=== PATIENT | male | born 1975 | race Caucasian/White ===

== ENCOUNTER 2019-12-04 08:23 | Outpatient (CLI) | payer OTHER, SELFPAY ==
--- NOTE | ~2019-12-04 | XR_ITS ---
MODIFIED ESOPHAGRAM HISTORY: Dysphagia. TECHNIQUE: Modified barium esophagram was performed on 12/04/2019. I administered fluoroscopy and perfo rmed the exam with speech pathologist. Patient was seated for lateral fluoroscopic imaging for inges tion of thin liquids, pudding, solids and quantified amounts, followed by thin liquids in uncontrolle d amounts. This was recorded on tape. A single fluoroscopic spot image was also recorded. The DAP for this procedure was 0.955 Gycm2. The amount of fluoroscopy time used during this procedure was 1.5 mi nutes. FINDINGS: Oral stage: Adequate function. Pharyngeal stage: Adequate function. Cervical/esophageal stage: Adequate function. The upper esophageal sphincter close to the prematurely on the tail of the bolus resulting in trace residual at the piriform sinus IMPRESSION: Patient tolerated regular consistency oral feedings in the upright position. Please raven elate with speech pathologist findings and specific feeding recommendations. Reviewed, dictated and finalized at location A. IMPRESSION: Patient tolerated regular consistency oral feedings in the upright position. Please correlate with speech pathologist findings and specific feedi ng recommendations.
--- NOTE | 2019-12-04 10:32 | STOPEVAL ---
MODIFIED BARIUM SWALLOW EVALUATION: Thank you for referring Mango Andujar to [facility]. Attending Provider: RHONDA Vickers Referring Provider: Dr Griselda OSEGUERA Outpatient Evaluation: MBS Start: 12/04/19 10:22 Freq: Status: Active Protocol: Document 12/04/19 09:00 BECHERERT (Rec: 12/04/19 10:32 BECHERERT [email or web address]) Therapy Assessment Status Assessment Status Assessment Status Evaluation Outpatient Past Medical History Past Medical History Source of Past Medical History Patient Neurological History Hx Neurological Disorders No Significant History Cardiovascular History Hx Cardiac Disorders No Significant History Respiratory History Hx Respiratory Disorders No Significant History Gastrointestinal History Hx Gastrointestinal Disorders No Significant History Genitourinary History Hx Genitourinary Disorders No Significant History Musculoskeletal History Hx Musculoskeletal Disorders No Significant History Hematological History Hx Hematological Disorders No Significant History Endocrine History Hx Endocrine Disorders No Significant History HEENT History Hx HEENT Disorders No Significant History Integumentary History Hx Skin Disorders No Significant History Pain History History of Any Previous or Ongoing No Significant History Instance of Pain Anesthesia History Hx Anesthesia Reactions No Significant History Evaluation Information Problem Diagnosis DYSPHAGIA Onset 5 months ago Prior Level of Function Prior Swallow Level Prior Intake Method Oral Prior Diet Regular (Level 7 Diet) Prior Liquid Consistency Thin (Level 0 Diet) Prior Cognition/Communication Prior Communication Level No Impairment Prior Cognitive Function Able to Function Independently Pain Assessment Timing of Pain Assessment Timing of Pain Assessment Assessment Self Report Self Report Pain Level 0 Pain Scale Pain Scale Used Numeric (1 - 10) Pain Score Pain Score 0: Self Report Modified Barium Swallow Evaluation Recent Swallowing History Reports Dysphagia Yes: solids get hung up Onset of Dysphagia 5 months ago History of Dysphagia No Other Factors Impacting Dysphagia None History of Pneumonia No Reported Difficult Consistencies Solids Intake Method Prior to Swallow Oral Evaluation Diet Prior to Swallow Evaluation Regular, Level 7 Liquid Consistency Prior to Swallow Thin (0) Evaluation Consistency Thin Uncontrolled 1 Other Amount cup & straw Oral Preparatory Symptoms None Oral Phase Symptoms None Pharyngeal Phase Symptoms Within Functional Limits Severity of Vallecular Residue Non
== END 2019-12-04 08:24 | disposition home or self-care (01) ==
PROVIDERS: PCP Family Medicine; Visit Provider Nurse Practitioner Family
DX: R13.10 Dysphagia, unspecified (principal)
CPT/HCPCS: 92611

== ENCOUNTER 2020-02-16 10:20 | Outpatient (CLI) | payer OTHER, SELFPAY ==
--- NOTE | ~2020-02-16 | US_ITS ---
EXAMINATION: US soft tissue head and neck DATE: 02/16/2020 10:44 INDICATION: Left neck lump. TECHNIQUE: Multiple grayscale and Doppler ultrasound images of the neck were obtained. COMPARISON: Ultrasound 03/11/2018 FINDINGS: There is a normal subcutaneous lymph node in the patient's area of concern in left neck. IMPRESSION: 1. Normal subcutaneous lymph node in the patient's area of concern in left neck. Reviewed, dictated and finalized at location A. IMPRESSION: 1. Normal subcutaneous lymph node in the patient's area of concern in left neck .
== END 2020-02-16 10:21 | disposition home or self-care (01) ==
PROVIDERS: PCP Family Medicine; Visit Provider Nurse Practitioner Family
DX: R22.1 Localized swelling, mass and lump, neck (principal)
CPT/HCPCS: 76536

== ENCOUNTER 2020-02-28 01:20 | Outpatient (CLI) | payer OTHER, SELFPAY ==
[2020-02-28 20:48] LABS: SARS-CoV-2 RNA PCR Negative
== END 2020-02-28 01:21 | disposition home or self-care (01) ==
LOC: ANHCOVIDDT 01:20
PROVIDERS: PCP Family Medicine; Visit Provider Otolaryngology
DX: Z01.812 Encounter for preprocedural laboratory examination (principal); Z20.828 Contact with and (suspected) exposure to other viral communicable diseases
CPT/HCPCS: 87635; C9803; U0003

== ENCOUNTER 2020-03-01 00:37 | Day surgery (SDC) | payer OTHER, SELFPAY ==
[2020-02-27 14:33] VITALS: BMI 26.2
--- NOTE | 2020-03-01 07:04 | PM.IMHP ---
H&P: HPI History of Present Illness Date/Time: 03/01/20 07:04 Chief complaint: left neck mass Narrative: Mango Andujar is a 44 year old male With history of recurrent left-sided neck mass the neck masses small has been ultrasound previously appears to be reactive lymph node. On my examination is approximately 5 x 5 mm. The patient having a significant family history of cancer wishes to have the lesion removed. The patient presents today for excision of the lesion. Review of Systems Constitutional: Constitutional: Denies fatigue, Denies fever(s) and Denies lethargy Eyes: Eyes: Denies blurry vision and Denies change in vision ENT: Reports as per HPI Cardiovascular: Cardiovascular: Denies chest pain Respiratory: Respiratory: Denies cough Endocrine: Endocrine: Denies fatigue Hematologic/Lymphatic: Hematologic/Lymphatic: Denies easy bleeding and Denies easy bruising Allergic/Immunologic: Allergic/Immunologic: Denies seasonal rhinorrhea PMFSH Social History Social History Smoking status: Never smoker Alcohol intake: current Drinks per week: 4 Spiritual care concerns: No Meds Home Medications and Allergies Home Medications Medication Instructions Recorded Confirmed Type escitalopram oxalate 20 mg tablet 20 mg PO DAILY #30 tablet 12/25/19 02/27/20 Rx atorvastatin 10 mg tablet 10 mg PO DAILY #90 tablet 01/19/20 02/27/20 Rx buspirone 10 mg tablet 10 mg PO BID #180 tablet 01/22/20 02/27/20 Rx lisinopril 5 mg tablet 5 mg PO DAILY #90 tablet 01/22/20 02/27/20 Rx zolpidem [Ambien] 10 mg PO HS 02/27/20 02/27/20 History Allergies Allergy/AdvReac Type Severity Reaction Status Date / Time No Known Allergies Allergy Verified 02/27/20 14:34 Exam Const: General: cooperative, healthy appearing, comfortable, well developed and alert HENMT: Head: normal to inspection, normocephalic and atraumatic Ears: hearing grossly normal bilaterally, external ears normal, TM's normal bilaterally and EAC's normal General nose exam: Normal external nose present, Normal nares present, No nasal polyps present, Normal nasal mucous membranes and turbinates present and Normal septum present Face and sinus: normal facial exam Mouth: Yes Normal oral and palatal mucosa present, Yes lip normal, Yes tongue normal, Yes oropharynx normal and Yes moist mucous membranes Teeth and gingiva: dentition normal and gingiva normal Throat: posterior oropharynx normal, tonsils normal and uvula midline Eyes: General: appearance normal, both eyes and all related structures Periorbital: periorbital findings normal Eyelids: eyelids normal Conjunctivae: conjunctivae normal Sclera: sclerae normal Neck: Neck: normal visual inspection, full ROM, no lymphadenopathy and other ( 5 x 5 mm left inferior subcutaneous mobile neck lesion) Thyroid: thyroid normal Lymphatic: no lymphadenopathy noted Resp: Effort & Inspection: normal respiratory effort and able to speak in complete sentences Cardio: Jugular venous distension: no JVD Neuro: Cranial nerves: Yes CN's II-XII intact bilaterally Assessment and Plan Assessment and plan (1) Mass of left side of neck: Code(s): R22.1 - Localized swelling, mass and lump, neck Status: Acute Assessment and Plan: the plan is for the OR to remove the left neck mass/lesion. The risks and benefits were explained in great detail with the patient including bleeding infection damage to surrounding neurovascular structures. The patient voiced understanding of these risks and agreed to the aforementioned procedures.
--- NOTE | 2020-03-01 08:00 | ECG_ITS ---
Measurements Intervals [place] Rate: 64 P: 40 NM: 151 QRS: 66 QRSD: 93 T: 28 QT: 418 QTc: 433 Interpretive Statements SINUS RHYTHM DELAYED PRECORDIAL R/S TRANSITION ST ELEVATION IN ANTEROLAT/HIGH LAT LEADS- PROBABLY EARLY REPOLARIZATION BORDERLINE ECG Electronically Signed On 03-01-2020 9:12:06 CDT by Jem Dave D.O.
--- NOTE | 2020-03-01 08:38 | WPDHPUPDATE1 ---
History and Physical Update Update Date/Time: 03/01/20 08:38 History and Physical has been reviewed, including an updated exam of the patient. There are NO changes in the patient's condition. Risks, benefits, and alternatives have been discussed and questions answered. Patient agrees to proceed with procedure.
[2020-03-01] MEDS: LACTATED RINGERS 1,000 ML 30 ML IV CONT ×2 (08:40→10:30)
[2020-03-01 09:20] VITALS: BP 114/77; PULSE 76; TEMP 36.2; O2SAT 100
--- NOTE | 2020-03-01 09:20 | WPDANESEPPF ---
Anes - Initial Pre Proc Eval Procedure: Operation Date: 03/01/20 10:00 Proposed Procedures p Excision Left Neck Mass - Naveed Mojica MD Date/Time: 03/01/20 09:20 Surgeon: Naveed Mojica MD Pre Op Diagnosis: left neck mass Patient Data Age: 44 Gender: M Height: 5 ft 9 in Weight: 80.74 kg Allergies Allergy/AdvReac Type Severity Reaction Status Date / Time No Known Allergies Allergy Verified 02/27/20 14:34 Home Medications Medication Instructions Recorded Confirmed Type escitalopram oxalate 20 mg tablet 20 mg PO DAILY #30 tablet 12/25/19 02/27/20 Rx atorvastatin 10 mg tablet 10 mg PO DAILY #90 tablet 01/19/20 02/27/20 Rx buspirone 10 mg tablet 10 mg PO BID #180 tablet 01/22/20 02/27/20 Rx lisinopril 5 mg tablet 5 mg PO DAILY #90 tablet 01/22/20 02/27/20 Rx zolpidem [Ambien] 10 mg PO HS 02/27/20 02/27/20 History Patient hx anesthesia problems: none Family hx anesthesia problems: none PMFSH Family History Family History Father Family history of pancreatic cancer Social History Social History Smoking status: Never smoker Alcohol intake: current Drinks per week: 4 Spiritual care concerns: No Anes - Eval Final PreProcedure Day of Procedure 03/01/20 09:20 Patient weight: overweight Heart: regular rate and rhythm Lungs: clear to auscultation Airway: Mallampati scale class II Neurological: alert and oriented Last oral intake: >/= 8 hours ASA classification: II Emergent: no Anesthetic plan: proceed Anesthesia type and monitoring: general GIVS and standard monitoring Informed Consent: The patient's anesthetic plan and its attendant risks and benefits were discussed with the patient/family/POA. Questions were solicited and answers provided to the satisfaction of the patient/family/POA.
[2020-03-01] MEDS: ceFAZolin 2 GM/D5W 50 ML 2 GM/50 ML BAG IVPB (09:40)
--- NOTE | 2020-03-01 09:40 | WPDHPUPDATE1 ---
History and Physical Update Update Date/Time: 03/01/20 09:40 History and Physical has been reviewed, including an updated exam of the patient. There are NO changes in the patient's condition. Risks, benefits, and alternatives have been discussed and questions answered. Patient agrees to proceed with procedure.
[2020-03-01] MEDS: LIDO 1%/EPINEPHRINE 1:100,000 20 ML VIAL INFILTRATE (09:46)
[2020-03-01 10:30] VITALS: BP 111/68; PULSE 106; RESP 18; TEMP 36.1; O2SAT 100
--- NOTE | 2020-03-01 10:35 | PM.PROC ---
Procedure Note - Detailed Date of procedure: 03/01/20 Pre-op diagnosis: left neck mass Post-op diagnosis: same Procedure performed: 1. Excision of left neck mass 2. Complex closure of left neck incision 3 cm Description of procedure: the patient was correctly identified and consent was verified in the preoperative holding area. The patient was then brought to the operating room and a time-out was performed. General anesthesia was induced and endotracheal tube was secured the patient's airway and taped to the right lower lip. The head was then turned and the patient was prepped and draped for the aforementioned procedures. A 3 cm skin incision was made over the area of concern on the patient's left neck which was marked preoperatively. Dissection was carried down to the platysma as a small firm collection of lymph nodes was located. These lymph nodes were removed and sent for pathologic analysis. Hemostasis was achieved using bipolar electrocautery at a setting of 10 and the wound was copiously irrigated with sterile normal saline. The wound was then closed in its deepest layer with 4-0 interrupted Vicryl sutures. Four 0 Monocryl was run in the deep dermal layer. The skin was glued closed it was very well approximated. 5 cc of 1% lidocaine with 1 100,000 parts epinephrine was injected in the surgical bed and skin. I was present for and performed all portions of this procedure, care of the patient was turned over to Anesthesiology. Anesthesia: GLMA Surgeon: Naveed Mojica MD Estimated blood loss (mL): 5 Drains: No Packing: No Pathology: yes Complications: No immediate complications Condition: stable Disposition: PACU Findings: Small 5 x 5 mm lymph nodes approximately 2-3 relocated in the area of concern and removed.
[2020-03-01 10:45] VITALS: BP 112/78; PULSE 94; RESP 20; O2SAT 100
[2020-03-01 10:55] VITALS: BP 112/82; PULSE 90; RESP 20; O2SAT 98
[2020-03-01 11:10] VITALS: BP 125/88; PULSE 84
[2020-03-01 11:40] VITALS: BP 133/86; PULSE 87
--- NOTE | 2020-03-01 16:17 | SUR.PHASEII ---
11:45- Patient unhooked from monitors and waiting for ride.
== END 2020-03-01 12:01 | disposition home or self-care (01) ==
PROVIDERS: PCP Family Medicine; Visit Provider Otolaryngology
DX: R22.1 Localized swelling, mass and lump, neck (principal); L90.5 Scar conditions and fibrosis of skin; I10 Essential (primary) hypertension; E78.5 Hyperlipidemia, unspecified; F41.9 Anxiety disorder, unspecified; Z80.9 Family history of malignant neoplasm, unspecified; Z79.899 Other long term (current) drug therapy
CPT/HCPCS: 21552; 87635; 88305; 93005; C9803; J0330; J0690; J1100; J2250; J2370; J2405; J2704; J3010; J7120; U0003

== ENCOUNTER 2020-07-05 07:53 | Outpatient (CLI) | payer OTHER, SELFPAY ==
--- NOTE | ~2020-07-05 | US_ITS ---
US scrotum doppler INDICATION: Epididymal orchitis. Pain after vasectomy. TECHNIQUE: Testicular sonogram utilizing grayscale and color Doppler FINDINGS: The testes are normal in size and appearance. No focal lesions are seen. The right testes measures 4.4 x 2.3 x 3.4 cm centimeters, and the left testis measures 4.1 x 2.3 x 3 cm cm. There is n ormal vascular flow to both testes. The right and left epididymides appear normal. Small right hydrocele. Bilateral varicoceles. IMPRESSION: 1. Small right hydrocele. 2: Bilateral varicoceles. Reviewed, dictated and finalized at location A. MIXER HELPER
== END 2020-07-05 07:54 | disposition home or self-care (01) ==
LOC: ANHIMG 07:54
PROVIDERS: PCP Family Medicine; Visit Provider Nurse Practitioner Adult Health
DX: N45.3 Epididymo-orchitis (principal); I86.1 Scrotal varices; N43.3 Hydrocele, unspecified
CPT/HCPCS: 76870; 93976

== ENCOUNTER 2020-08-09 12:04 | Emergency (ER) | payer OTHER, SELFPAY ==
--- NOTE | ~2020-08-09 | XR_ITS ---
EXAMINATION: XR elbow RT min 3V DATE: 08/09/2020 12:24 INDICATION: Right elbow pain TECHNIQUE: Anteroposterior, two oblique and lateral views of the right elbow were obtained. COMPARISON: None. FINDINGS: Alignment is normal. No fracture or joint effusion. Joint spaces are normal. There is poste rior soft tissue swelling of the elbow. IMPRESSION: 1. No acute osseous abnormality. Reviewed, dictated and finalized at location A. SHIFTER
[2020-08-09 12:16] VITALS: BP 141/84; PULSE 94; RESP 18; TEMP 36.6; O2SAT 99
--- NOTE | 2020-08-09 12:27 | ED.GENADULT ---
HPI - General Adult General Chief complaint: Extremity Injury, Upper Stated complaint: right elbow injury Time Seen by Provider: 08/09/20 12:25 Source: patient and RN notes reviewed Mode of arrival: ambulatory Limitations: no limitations History of Present Illness HPI narrative: 44-year-old male presents with complains of RT elbow tenderness and swelling for the past 3 days. Mango reports falling backwards on ice Thursday, August 06, 2020 hitting right elbow on ground causing injury. He continues to have tenderness and swelling to right elbow. Ice, mag wrap, and Ibuprofen (400mg last this a.m.) with some relief. Abrasion to RT elbow. No radiation of pain. Exacerbation factor consist of movement. The relieving factor is immobility and medication. Dominant hand is the RIGHT HAND. Mango reports hitting head on truck, denies loss of consciousness, dizziness, syncopal episodes, memory loss, or seizure activity. Denies fever or chills. The patient reports she have not been diagnosed with COVID-19. The patient reports she is not waiting for the results of a COVID-19 lab test. The patient reports she do not have chills, weakness, or fatigue. The patient reports she do not have a new or worsening cough or shortness of breath. Denies chest pain. The patient reports she do not have any rhinorrhea, congestion, sore throat, loss of taste or smell, nausea, vomiting, abdominal pain, and diarrhea. Tolerating po intake well. Denies recent traveling. Denies concerns for COVID-19 or exposures been home with limited outdoor exposure except for essential household needs, work, and return home. At this time, patient is not suspected of having COVID-19. Some parts of this dictation were generated by voice recognition software and may contain typographical and/or grammatical inaccuracies. Related Data Allergies Allergy/AdvReac Type Severity Reaction Status Date / Time No Known Allergies Allergy Verified 02/27/20 14:34 Review of Systems Review of Systems: Narrative: CONSTITUTIONAL: Denies fever, chills, sweats. EYES: Denies visual changes, redness, discharge. ENT: Denies rhinorrhea, congestion, sore throat, otalgia. CARDIOVASCULAR: Denies chest pain, palpitations, edema. RESPIRATORY: Denies dyspnea, wheezing, cough. GASTROINTESTINAL: Denies abdominal pain, nausea, vomiting, diarrhea. SKIN: Denies rash or itching. MUSCULOSKELETAL: Denies acute back pain or myalgia. Complains of RT elbow pain and swelling. NEUROLOGIC: Denies numbness or focal weakness. PSYCHIATRIC: Denies anxiety or depression. All other systems reviewed & are unremarkable except as noted in HPI and below. [facility] Past Medical History Medical History (Updated 08/09/20 @ 13:06 by RHONDA Jon) Anxiety Dysphagia Essential hypertension Insomnia Liver disease Mass of left side of neck Mixed hyperlipidemia Seasonal allergic rhinitis Stress Tremors of nervous system Surgical History Surgical History (Updated 08/09/20 @ 13:06 by RHONDA Jon) History of knee surgery Left due to meniscus tear History of shoulder surgery Left x2 due to rotator cuff Family History Family History (Updated 08/09/20 @ 13:07 by RHONDA Jon) Father Family history of pancreatic cancer Smoker in home Mother Hypertension Social History Social History (Updated 08/09/20 @ 13:08 by RHONDA Jon) Smoking status: Never smoker Tobacco type: cigarettes Second hand tobacco smoke exposure: No Alcohol intake: current Drinks per week: 4 Substance use: never Living arrangements: with family Occupation/Education: occupation 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
== END 2020-08-09 13:00 | disposition home or self-care (01) ==
PROVIDERS: Emergency Provider Nurse Practitioner Family; PCP Family Medicine
DX: S50.01XA Contusion of right elbow, initial encounter (principal); W00.0XXA Fall on same level due to ice and snow, initial encounter; S50.311A Abrasion of right elbow, initial encounter; I10 Essential (primary) hypertension; E78.2 Mixed hyperlipidemia; F41.9 Anxiety disorder, unspecified
CPT/HCPCS: 73080; 99213; G0463

== ENCOUNTER 2020-12-12 08:24 | Outpatient (CLI) | payer OTHER, SELFPAY ==
--- NOTE | ~2020-12-12 | XR_ITS ---
XR abdomen/kub 1V 12/12/2020 08:41 INDICATION: Right flank pain for 5 days. TECHNIQUE: KUB COMPARISON: Comparison to multiple prior studies sequentially, with oldest reviewed study dated 11/23. FINDINGS: Bowel gas pattern is normal. There is no evidence of free air, mass, organomegaly, ascites or obstruction. No abnormal calculi are seen. The bones appear intact. There are cholecystectomy c lips. IMPRESSION: 1: No acute abdominal abnormality identified. Reviewed, dictated and finalized at location A.
--- NOTE | ~2020-12-12 | CT_ITS ---
EXAMINATION: CT abdomen pelvis wo con DATE: 12/12/2020 08:52 INDICATION: Right flank pain. History of kidney stones. TECHNIQUE: Computed tomography (CT) of the abdomen and pelvis was performed without intravenous contr ast. The dose-length product was 433.98 mGy-cm. Automated exposure control and iterative reconstructi on technique were employed. COMPARISON: CT dated 07/19/2017. FINDINGS: Lung bases are unremarkable. Heart size normal. No significant pleural or pericardial effus ion. There is a 2 mm nonobstructing right renal stone. No ureteral stone or hydronephrosis. There are small low-density lesions in the liver and right kidney, most likely benign. The spleen, pa ncreas, adrenal glands are unremarkable. No free air or free fluid. Small hiatal hernia. No significa nt vascular abnormality. No lymphadenopathy. Nonobstructive bowel gas pattern. Normal appendix. No fr ee air or free fluid. IMPRESSION: 1. Nonobstructing right nephrolithiasis. Reviewed, dictated and finalized at location A.
== END 2020-12-12 08:25 | disposition home or self-care (01) ==
LOC: ANHIMG 08:25
PROVIDERS: PCP Family Medicine; Visit Provider Nurse Practitioner Adult Health
DX: R10.9 Unspecified abdominal pain (principal); N20.0 Calculus of kidney
CPT/HCPCS: 74018; 74176

== ENCOUNTER → 2021-01-08 14:53 | Outpatient (CLI) | payer OTHER, SELFPAY ==
--- NOTE | ~2021-01-08 | US_ITS ---
EXAMINATION: US scrotum doppler EXAM DATE: 01/08/2021 15:19 INDICATION: Mass of right testicle. Painful to touch, getting bigger. History epididymitis. TECHNIQUE: Multiple grayscale and Doppler images of the testicles and scrotum were obtained bilateral ly. Comparison is made to prior examination from 07/05/2020. FINDINGS: Right testicle measures 4.2 x 2.3 x 3.3 cm and is morphologically normal. Low resistance Doppler loreta w confirmed. The epididymis is unremarkable. Small varicocele. Left testicle measures 4.2 x 2.0 x 3.0 cm and is morphologically normal. Low resistance Doppler flow confirmed. The epididymis is unremarkable. Small varicocele. IMPRESSION: 1. Small bilateral varicoceles. Reviewed, dictated and finalized at location A.
== END ==
PROVIDERS: PCP Family Medicine; Visit Provider Nurse Practitioner Adult Health
DX: I86.1 Scrotal varices (principal); N50.89 Other specified disorders of the male genital organs; N50.82 Scrotal pain
CPT/HCPCS: 76870; 93976

== ENCOUNTER 2021-01-15 12:39 | Outpatient (CLI) | payer OTHER, SELFPAY ==
--- NOTE | ~2021-01-15 | NM_ITS ---
EXAMINATION: MACK lopez renal scan DATE: 01/15/2021 13:54 INDICATION: Elevated serum creatinine TECHNIQUE: 7.8 mCi Tc-99m MAG3 was administered IV. 40 mg furosemide was administered IV immediately afterward. The patient was scanned in the supine position. A posterior abdominal radionuclide angiog mery was obtained. A subsequent time course of static images of the kidneys, ureters, and bladder was obtained. COMPARISON: CT abdomen and pelvis dated 12/12/2020 FINDINGS: The posterior abdominal radionuclide angiogram and sequential static images show normal size, positio n, and morphology of the kidneys. Peak renal parenchymal uptake was 2.4 min in left kidney and 2.4 mi n in right kidney (normal peak 3-5 minutes). The relative early renal uptake was 48% on the left and 52% on the right (<40% is abnormal). No abnormalities of the ureters or bladder are seen. T1/2 for clearance of activity from the left kidney and proximal collecting system was 8 minutes. T1/2 for clearance of activity from the right kidney and proximal collecting system was 9 minutes. Notes on interpretation: T1/2 <10 minutes is normal, 10-15 minutes is low grade obstruction of questi onable clinical significance, 15-20 minutes is partial obstruction that is likely clinically signific ant, >20 minutes is high grade obstruction. Note that false positives may be seen with supine positio kirby, dehydration, severely dilated nonobstructed kidney, atonic collecting system, poor renal functi on, and chronic furosemide use. IMPRESSION: 1. Symmetric kidney function. 2. No delay in contrast clearance from either kidney to suggest fixed obstruction. Reviewed, dictated and finalized at location A. IMPRESSION: 1. Symmetric kidney function. 2. No delay in contrast clearance from either kidney to suggest fixed obstruct ion.
== END 2021-01-15 12:40 | disposition home or self-care (01) ==
PROVIDERS: PCP Family Medicine; Visit Provider Nurse Practitioner Adult Health
DX: R79.89 Other specified abnormal findings of blood chemistry (principal)
CPT/HCPCS: 78708; A9562; J1940

== ENCOUNTER → 2021-04-16 07:37 | Outpatient (CLI) | payer OTHER, SELFPAY ==
--- NOTE | ~2021-04-16 | XR_ITS ---
XR shoulder RT min 2V 04/16/2021 08:12 INDICATION: Right shoulder pain PROCEDURE: 4 views right shoulder COMPARISON: 04/06/2018 FINDINGS: Fracture, dislocation or subluxation is not identified. No significant joint space narrowin g. There is anatomic alignment. The soft tissues appear within normal limits. No foreign bodies are identified. IMPRESSION: 1: NO ACUTE BONE OR JOINT ABNORMALITY IDENTIFIED. Reviewed, dictated and finalized at location B.
== END ==
PROVIDERS: PCP Family Medicine; Visit Provider Nurse Practitioner Family
DX: S49.91XA Unspecified injury of right shoulder and upper arm, initial encounter (principal); X58.XXXA Exposure to other specified factors, initial encounter
CPT/HCPCS: 73030

== ENCOUNTER → 2021-05-06 14:39 | Outpatient (CLI) | payer OTHER, SELFPAY ==
--- NOTE | ~2021-05-06 | MR_ITS ---
EXAMINATION: MR shoulder RT wo con DATE: 05/06/2021 15:48 INDICATION: Right shoulder pain. TECHNIQUE: Magnetic resonance imaging (MRI) of the right shoulder was performed without intravenous c ontrast. Sequences included axial PD-weighted FS FSE, coronal oblique PD-weighted FS FSE and T2-weigh rodríguez FS FSE, and sagittal oblique T2-weighted FS FSE and T1-weighted FSE. COMPARISON: Right shoulder MRI 04/23/2018, radiographs 04/16/2021 FINDINGS: Coracoacromial arch: The acromion undersurface is curved in morphology (type II). There is mild acromioclavicular joint os teoarthritis. There is mild subacromial/subdeltoid bursitis. Rotator cuff: There is moderate supraspinatus and infraspinatus tendinopathy. Teres minor tendon is normal. Subscap ularis tendon is normal. No tear. There is no asymmetric fatty atrophy of the rotator cuff muscle bel lies. Biceps tendon and glenoid labrum: Biceps tendon is in bicipital groove. Intra-articular biceps tendon is normal. The glenoid labrum is normal. Fluid: There is no glenohumeral joint effusion. Bones/cartilage: The glenoid cartilage is normal. Humeral head cartilage is normal. IMPRESSION: 1. Moderate rotator cuff tendinopathy. No tear. 2. Mild subacromial/subdeltoid bursitis. 3. Mild acromioclavicular joint osteoarthritis. Reviewed, dictated and finalized at location A. GRAPHER
== END ==
PROVIDERS: PCP Family Medicine; Visit Provider Nurse Practitioner Family
DX: S49.91XA Unspecified injury of right shoulder and upper arm, initial encounter (principal); X58.XXXA Exposure to other specified factors, initial encounter; M19.011 Primary osteoarthritis, right shoulder; M75.51 Bursitis of right shoulder
CPT/HCPCS: 73221

== ENCOUNTER 2022-02-06 08:23 | Outpatient (CLI) | payer OTHER, SELFPAY ==
--- NOTE | 2022-02-06 08:32 | ECG_ITS ---
Measurements Intervals [place] Rate: 65 P: 42 CO: 147 QRS: 65 QRSD: 89 T: 29 QT: 393 QTc: 409 Interpretive Statements SINUS RHYTHM WITHIN NORMAL LIMITS COMPARED TO ECG 03/01/2020 09:01:02 NO SIGNIFICANT CHANGES Electronically Signed On 02-06-2022 10:24:17 CDT by Henry Keys M.D.
== END 2022-02-06 08:24 | disposition home or self-care (01) ==
LOC: ANHSURGERY 08:28
PROVIDERS: PCP Family Medicine; Visit Provider Orthopaedic Surgery
DX: I10 Essential (primary) hypertension (principal); Z01.818 Encounter for other preprocedural examination
CPT/HCPCS: 93005

== ENCOUNTER 2022-02-10 02:20 | Day surgery (SDC) | payer OTHER, SELFPAY ==
[2022-02-05 15:46] VITALS: BMI 26.6
--- NOTE | 2022-02-05 15:57 | PC.NURSE ---
Report to the Outpatient Waiting Room, entrance under the green pavilion located off [facility], at 0600 on 02-10-2022. OR Time: 0730. - You and your visitor will be asked to self-screen and do not enter if you have any COVID symptoms. - Only one visitor and NO children (Under age 16) visitors are allowed at this time. - The patient visitor is requested to leave or wait in car when not with patient due to restrictions. - A mask is required within the hospital. Patients may have clear liquids (water, carbonated beverages, clear teas, apple juice) until 3 hours prior to surgery with a maximum of 20 ounces. 0430 - No food from midnight until time of surgery - Infants may have breast milk until 4 hours before surgery, infant formula 6 hours prior to surgery. - Children will be allowed to drink immediately following surgery. If applicable, please bring a bottle or sippy cup to assist with drinking. Juice, water, soda, and popsicles are readily available. For infants on formula, please bring formula the day of surgery. Pacifiers are allowed. Take the following medications with a SIP of water the morning of surgery: buspirone, escitalopram Medications to discontinue per physician: N/A Please no make-up, nail jamaican, hairspray, perfume, deodorant, or body powder the day of surgery. No jewelry (including any body piercings) or valuables the day of surgery, leave them at home. Please take a shower or bath the night before, or the morning of, surgery with an antibacterial soap. Wear comfortable, loose fitting clothing. Children are encouraged to wear pajamas. - Jewelry must be removed prior to entering the operating room. Rings and piercings that are not removed may be cut off. - The hospital will not accept responsibility for valuables. - Please leave all valuables, including medications, at home the day of surgery. If you are going home after surgery, a licensed class b driver must drive you home. - NO public transportation without another adult. - We recommend that an adult stay with you for 24 hours following discharge. - We also recommend that you do not drive, make important decision, drink alcoholic beverages, or take any drugs that were not prescribed by your health care provider for at least 24 hours after your discharge time. For Pediatric surgeries, we recommend two adults accompany the child home (only one inside the building at this time). Follow any additional instructions given to you from your surgeon. If you or anyone in your household have experienced Covid symptoms in the past week, please notify your surgeon or the nurse liaison at the phone number below for possible testing. Telephone instructions given to Casey Andujar and asked if any additional questions and then verbalized understanding. Patient advised to call surgeon office or pre surgery nurse liaison [phone] if any additional questions.
--- NOTE | 2022-02-09 13:48 | WPDANESEPPF ---
Anes - Initial Pre Proc Eval Procedure: Operation Date: 02/10/22 07:30 Proposed Procedures p Right Ulnar Nerve Decompression with Possible Transposition - Guzman Rivas MD Date/Time: 02/09/22 13:48 Surgeon: Guzman Rivas MD Pre Op Diagnosis: Rt Ulnar Neuritis Patient Data Age: 46 Gender: M Height: 1.75 m Weight: 81.65 kg Allergies Allergy/AdvReac Type Severity Reaction Status Date / Time No Known Allergies Allergy Verified 02/10/22 06:04 Home Medications Medication Instructions Recorded Confirmed Type buspirone 10 mg tablet 10 mg PO BID #180 tabs 06/03/21 02/10/22 Rx lisinopril 5 mg tablet 5 mg PO DAILY #90 tabs 06/30/21 02/10/22 Rx escitalopram oxalate 20 mg tablet 20 mg PO DAILY #90 tabs 12/30/21 02/10/22 Rx (Lexapro) atorvastatin 10 mg tablet 10 mg PO DAILY 02/05/22 02/10/22 History meloxicam 15 mg tablet 15 mg PO DAILY 02/05/22 02/10/22 History zolpidem 10 mg tablet (Ambien) 20 mg PO HS 02/05/22 02/10/22 History Patient hx anesthesia problems: none Family hx anesthesia problems: none Results Review: All pre-operative results and documents have been reviewed as part of the pre-operative evaluation. [facility] Past Medical History Medical History Anxiety BMI 27.0-27.9,adult BMI 28.0-28.9,adult Dysphagia Essential hypertension Gallbladder disorder History of headache Insomnia Liver disease Mass of left side of neck Mixed hyperlipidemia Seasonal allergic rhinitis Stress Tremors of nervous system Surgical History Surgical History History of knee surgery Left due to meniscus tear 2009 and 2010 History of lithotripsy History of shoulder surgery Left x2 due to rotator cuff Family History Family History Father Family history of pancreatic cancer Smoker in home Mother Hypertension Social History Social History Smoking status: Never smoker Second hand tobacco smoke exposure: No Alcohol intake: current Drinks per week: 7 Alcohol use details: socially Substance use: never Substance use type: does not use Living arrangements: with family Additional living arrangements comments: 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 Gender identity (if verbalized by the patient): Male Sexual Orientation (if Verbalized by the Patient): Straight or Heterosexual Spiritual care concerns: No Agree to blood products: Yes Anes - Eval Final PreProcedure Day of Procedure 02/09/22 13:48 Patient weight: overweight Heart: regular rate and rhythm Lungs: clear to auscultation Airway: Mallampati scale class II Neurological: alert and oriented Last oral intake: >/= 8 hours ASA classification: II Emergent: no Anesthetic plan: proceed Anesthesia type and monitoring: general ETT and standard monitoring Results Review: All pre-operative results and documents have been reviewed as part of the pre-operative evaluation. Informed Consent: The patient's anesthetic plan and its attendant risks and benefits were discussed with the patient/family/POA. Questions were solicited and answers provided to the satisfaction of the patient/family/POA.
--- NOTE | 2022-02-09 13:50 | WPDANESPNB ---
Anes - Peripheral Nerve Block Date/Time: 02/09/22 13:50 I have discussed with the patient/family/POA the placement of a peripheral nerve block for post-operative pain management, including associated risks, benefits, complications, and side effects. Alternative methods of post-operative analgesia were detailed. Questions were solicited and answers provided to the satisfaction of the patient/family/POA. Time-Out: A pre-procedural Time-Out was completed immediately before starting the procedure and confirmed: Patient Identification, Site, Procedure, Patient Position and the Availability of Requisite Equipment. Clinical Indications: Acute post-operative pain management requested by the operative surgeon. Nerve Block Insertion Note Anes-nerve block: supraclavicular right Patient position: supine Skin prep: chlorhexidine Needle: 22 gauge, stimulating, insulated echogenic needle. Needle length: 50 mm Technique: ultrasound Injectate: bupivacaine 0.5% with epi 5 mcg/ml (30cc- no epi) Observations: tolerated well Complications: none Procedure start time:: 723 Procedure end time:: 727
[2022-02-10] VITALS (9 sets, daily range): BP systolic 115–133; BP diastolic 85–94; PULSE 64–76; RESP 14–18; TEMP 36.1–36.3; O2SAT 95–100
[2022-02-10] MEDS: ACETAMINOPHEN 500 MG TABLET 1000 MG PO (06:09)
[2022-02-10] MEDS: KETOROLAC 15 MG/ML VIAL (*BKC) IV PUSH (06:57)
[2022-02-10] MEDS: LACTATED RINGERS 1,000 ML 30 ML IV CONT ×2 (06:57→08:24)
--- NOTE | 2022-02-10 07:16 | WPDHPUPDATE1 ---
History and Physical Update Update Date/Time: 02/10/22 07:16 History and Physical has been reviewed, including an updated exam of the patient. There are NO changes in the patient's condition. Risks, benefits, and alternatives have been discussed and questions answered. Patient agrees to proceed with procedure.
[2022-02-10] MEDS: ceFAZolin 2 GM/D5W 50 ML 2 GM/50 ML BAG IVPB (07:31)
--- NOTE | 2022-02-10 08:38 | P.OP_ITS ---
Procedure Note - Detailed Date of Procedure 02/10/22 Pre-op Diagnosis Rt Ulnar Neuritis Post-op Diagnosis Same Procedure Performed Right ulnar nerve decompression Surgeon Guzman Rivas MD Chemical Engineering Technologist [facility] Anesthesia General and Regional Description of Procedure The patient was identified and proper site identified. The preop holding area, and is you team performed a right upper extremity block. He was then taken to the operating room transferred to the or table placing him supine taking care to pad his torso and extremities. After general anesthetic induction and intubation, a nonsterile tourniquet was placed high in the right arm. Right upper extremity was then prepped and draped free in usual sterile fashion. Extremity was exsanguinated tourniquet was inflated to 250 millimeters mercury, remaining up for 23 minutes. A curvilinear incision was made over the cubital tunnel. Subcutaneous tissue was sharply dissected down to the deep fascia of the forearm. There was quite a bit of thickened subcutaneous tissue lying directly over the ulnar nerve and cubital tunnel. Cubital tunnel retinaculum was released. There was some Schueler bands traversing the nerve which were freed up as well. The nerve was released into the area where it entered the FCU muscle belly in the bit more proximally as well. Bipolar was used for hemostasis. The elbow was taken through range of motion and the nerve was noted to stay put in the cubital tunnel as the elbow was flexed and extended. The wound was irrigated with sterile saline. The deeper layers of the subcu were loosely reapproximated with 3-0 Monocryl and a three 0 V lock with tissue adhesive was used to close skin. Sterile dressing was applied. Tourniquet was released. He tolerated the procedure well. He was taken to recovery area in stable condition. There were no known intraoperative complications. Estimated blood loss was negative will. He received perioperative antibiotics. Estimated Blood Loss -1.0 Tourniquet Time 23 Drains No Packing No Pathology None sent Complications No immediate complications Condition Stable Disposition PACU
--- NOTE | 2022-02-10 08:53 | SUR.PHASEI ---
0852: Simple mask removed.
== END 2022-02-10 10:05 | disposition home or self-care (01) ==
PROVIDERS: PCP Family Medicine; Visit Provider Orthopaedic Surgery
PROC: (CPT 64718; principal; 2022-02-10 07:30)
DX: G56.21 Lesion of ulnar nerve, right upper limb (principal); G89.18 Other acute postprocedural pain; I10 Essential (primary) hypertension; E78.2 Mixed hyperlipidemia; F41.9 Anxiety disorder, unspecified
CPT/HCPCS: 64718; 64415; 93005; A4565; A9270; J0690; J1100; J1885; J2250; J2405; J2704; J3010; J7120

== ENCOUNTER 2023-05-27 07:54 | Outpatient (CLI) | payer OTHER, SELFPAY ==
--- NOTE | ~2023-05-27 | XR_ITS ---
XR abdomen/kub 1V 05/27/2023 08:15 INDICATION: Right flank pain TECHNIQUE: KUB COMPARISON: 12/12/2020 FINDINGS: Bowel gas pattern is normal. There is no evidence of free air, mass, organomegaly, ascites or obstruction. No abnormal calculi are seen. The bones appear intact. There are cholecystectomy c lips. Moderate colonic fecal loading. IMPRESSION: 1: No acute abdominal abnormality identified. Reviewed, dictated and finalized at location L. LITY DEVELOPER
== END 2023-05-27 07:55 | disposition home or self-care (01) ==
LOC: ANHIMG 08:00
PROVIDERS: PCP Family Medicine
DX: R10.9 Unspecified abdominal pain (principal)
CPT/HCPCS: 74018

== ENCOUNTER 2023-05-28 03:37 | Day surgery (SDC) | payer OTHER, SELFPAY ==
[2023-05-27 14:46] VITALS: BMI 26.9
--- NOTE | 2023-05-27 14:57 | PC.NURSE ---
Report to the Outpatient Waiting Room, entrance under the green pavilion located off [facility], at time ___1000____ on date _05/28/23 . Planned Procedure Time: ___1200 . Time changes happen often and if your time is changed the preop area will call you the afternoon before. - You and your visitor will be asked to self-screen and do not enter if you have any COVID symptoms. - A mask is optional within the hospital at this time. Patients may have clear liquids (water, carbonated beverages, clear teas, apple juice) until 3 hours prior to surgery with a maximum of 20 ounces. - No food from midnight until time of surgery - Infants may have breast milk until 4 hours before surgery, infant formula 6 hours prior to surgery. - Children will be allowed to drink immediately following surgery. If applicable, please bring a bottle or sippy cup to assist with drinking. Juice, water, soda, and popsicles are readily available. For infants on formula, please bring formula the day of surgery. Pacifiers are allowed. Take the following medications with a SIP of water the morning of surgery: __BUSPIRONE, ESCITALOPRAM__ DO NOT STOP ANY OF YOUR OTHER PRESCRIPTION MEDICATIONS PRIOR TO SURGERY ?EXCEPT THE FOLLOWING Medications to discontinue per physician ___N/A Date to take last dose Please no make-up, nail pashto, hairspray, perfume, deodorant, or body powder the day of surgery. No jewelry (including any body piercings) or valuables the day of surgery, leave them at home. Please take a shower or bath the night before, or the morning of, surgery with an antibacterial soap. Wear comfortable, loose fitting clothing. Children are encouraged to wear pajamas. - Jewelry must be removed prior to entering the operating room. Rings and piercings that are not removed may be cut off. - The hospital will not accept responsibility for valuables. - Please leave all valuables, including medications, at home the day of surgery. If you are going home after surgery, a licensed regional company truck driver must drive you home. - NO public transportation without another adult if you receive anesthesia. - We recommend that an adult stay with you for 24 hours following discharge. - We also recommend that you do not drive, make important decision, drink alcoholic beverages, or take any drugs that were not prescribed by your health care provider for at least 24 hours after your discharge time. For Pediatric surgeries, we recommend two adults accompany the child home. Follow any additional instructions given to you from your surgeon. If you or anyone in your household have experienced Covid symptoms in the past week, please notify your surgeon or the nurse liaison at the phone number below for possible testing. Telephone instructions given to ____PT and asked if any additional questions and then verbalized understanding. Patient advised to call surgeon office or pre surgery nurse liaison [phone] if any additional questions.
--- NOTE | 2023-05-27 16:06 | WPDANESEPPF ---
Anes - Initial Pre Proc Eval Procedure: Operation Date: 05/28/23 12:00 Proposed Procedures p Cystoscopy, Right Ureteroscopy, Possible Right Retrograde Pyelogram, Possible Right Stone Extraction, Possible Right Stent Placement, Possible Holmium Laser Procedure - Franko Stevens MD Date/Time: 05/27/23 16:06 Surgeon: Franko Stevens MD Pre Op Diagnosis: right kidney stone Patient Data Age: 47 Gender: M Height: 1.75 m Weight: 82.72 kg Allergies Allergy/AdvReac Type Severity Reaction Status Date / Time No Known Allergies Allergy Verified 05/28/23 10:28 Home Medications Medication Instructions Recorded Confirmed Type atorvastatin 10 mg tablet 10 mg PO DAILY #90 tabs 04/04/23 05/28/23 Rx buspirone 15 mg tablet 15 mg PO BID anxiety #60 tabs 04/04/23 05/28/23 Rx escitalopram oxalate 20 mg tablet 20 mg PO DAILY #90 tabs 04/04/23 05/28/23 Rx (Lexapro) lisinopril 5 mg tablet 5 mg PO DAILY #90 tabs 04/04/23 05/28/23 Rx zolpidem 10 mg tablet (Ambien) See Rx Instructions .Route 05/24/23 05/28/23 Rx .COMPLEX PRN sleep #90 tabs cephalexin 500 mg capsule 500 mg PO Q8H #9 caps 05/28/23 Rx hydrocodone 5 mg-acetaminophen 325 1 - 2 tablet PO Q6H PRN pain #20 05/28/23 Rx mg tablet tabs ibuprofen 200 mg tablet 400 mg PO Q6H PRN Pain 05/28/23 05/28/23 History Patient hx anesthesia problems: none Family hx anesthesia problems: none Results Review: All pre-operative results and documents have been reviewed as part of the pre-operative evaluation. [facility] Past Medical History Medical History Anxiety BMI 27.0-27.9,adult BMI 28.0-28.9,adult BPH loc w urin obs/LUTS Dysphagia Essential hypertension Gallbladder disorder History of headache Insomnia Liver disease Mass of left side of neck Mixed hyperlipidemia Seasonal allergic rhinitis Stress Tremors of nervous system Surgical History Surgical History Cubital tunnel syndrome on right Right ulnar nerve decompression February 10, 2022 History of knee surgery Left due to meniscus tear 2009 and 2010 History of lithotripsy History of shoulder surgery Left x2 due to rotator cuff Family History Family History Father Family history of pancreatic cancer Smoker in home Mother Hypertension Social History Social History Smoking status: Never smoker Second hand tobacco smoke exposure: No Alcohol intake: current Drinks per week: 6 Alcohol use details: socially Substance use: never Substance use type: does not use Lack of Transportation: No Lack of Food: Never True Current Housing: I Have Housing Concerned About Future Housing: No Difficulty Paying Gas/Electric Bills: No Difficulty Paying for Meds: No Currently Unemployed: YES Education: Bachelor's Degree Difficulty w/ Childcare or Family Care: No Living arrangements: with family Additional living arrangements comments: Occupation/Education: occupation 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 Gender identity (if verbalized by the patient): Male Sexual Orientation (if Verbalized by the Patient): Straight or Heterosexual Spiritual care concerns: No Agree to blood products: Yes Anes - Eval Final PreProcedure Day of Procedure 05/27/23 16:06 Patient weight: overweight Heart: regular rate and rhythm Lungs: clear to auscultation Airway: Mallampati scale class II Neurological: alert and oriented Last oral intake: >/= 8 hours ASA classification: II Emergent: no Anesthetic plan: proceed Anesthesia type and monitoring: general LMA and standard monitoring Results Review: All pre-operative results and documents have been reviewed as part of the pre-operative evaluation. Informed Consent: The patient's anesth
--- NOTE | 2023-05-27 16:53 | PM.HPGS ---
History of Present Illness History of Present Illness Consent: Risks, benefits, and alternatives have been discussed and questions answered. Patient agrees to proceed with procedure. Chief complaint: right kidney stone Narrative: Mango Andujar is a 47 year old male Well known to me with a history of recurrent urolithiasis. He has recent had intermittent flank pain an outside CT imaging suggesting a small right distal ureteral calculus. After discussion of options he has elected for cystoscopy with right ureteroscopy and stone extraction. He is aware the risk including, but not limited to, adverse cardiopulmonary events, hematuria and need for additional procedures. Review of Systems Cardiovascular: Cardiovascular: Denies chest pain, Denies lightheadedness, Denies palpitations and Denies dyspnea Respiratory: Respiratory: Denies dyspnea Gastrointestinal: Gastrointestinal: Denies diarrhea, Denies nausea and Denies vomiting Genitourinary: Genitourinary: Denies hematuria and Denies dysuria Endocrine: Endocrine: Denies palpitations PMFSH Past Medical History Medical History Anxiety BMI 27.0-27.9,adult BMI 28.0-28.9,adult BPH loc w urin obs/LUTS Dysphagia Essential hypertension Gallbladder disorder History of headache Insomnia Liver disease Mass of left side of neck Mixed hyperlipidemia Seasonal allergic rhinitis Stress Tremors of nervous system Surgical History Surgical History Cubital tunnel syndrome on right Right ulnar nerve decompression February 10, 2022 History of knee surgery Left due to meniscus tear 2009 and 2010 History of lithotripsy History of shoulder surgery Left x2 due to rotator cuff Family History Family History Father Family history of pancreatic cancer Smoker in home Mother Hypertension Social History Social History Smoking status: Never smoker Second hand tobacco smoke exposure: No Alcohol intake: current Drinks per week: 6 Alcohol use details: socially Substance use: never Substance use type: does not use Lack of Transportation: No Lack of Food: Never True Current Housing: I Have Housing Concerned About Future Housing: No Difficulty Paying Gas/Electric Bills: No Difficulty Paying for Meds: No Currently Unemployed: YES Education: Bachelor's Degree Difficulty w/ Childcare or Family Care: No Living arrangements: with family Additional living arrangements comments: Occupation/Education: occupation 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 Gender identity (if verbalized by the patient): Male Sexual Orientation (if Verbalized by the Patient): Straight or Heterosexual Spiritual care concerns: No Agree to blood products: Yes Meds Home Medications and Allergies Home Medications Medication Instructions Recorded Confirmed Type atorvastatin 10 mg tablet 10 mg PO DAILY #90 tabs 04/04/23 05/27/23 Rx buspirone 15 mg tablet 15 mg PO BID anxiety #60 tabs 04/04/23 05/27/23 Rx escitalopram oxalate 20 mg tablet 20 mg PO DAILY #90 tabs 04/04/23 05/27/23 Rx (Lexapro) lisinopril 5 mg tablet 5 mg PO DAILY #90 tabs 04/04/23 05/27/23 Rx zolpidem 10 mg tablet (Ambien) See Rx Instructions .Route 05/24/23 05/27/23 Rx .COMPLEX PRN sleep #90 tabs Allergies Allergy/AdvReac Type Severity Reaction Status Date / Time No Known Allergies Allergy Verified 05/27/23 14:45 Exam Const: General: no acute distress Resp: Effort & Inspection: normal respiratory effort GI: Inspection: non-distended GI Palp: No abdominal tenderness and No Guarding due to palpation present (GI) Auscultation: normal bowel sounds Assessment and Plan Assessment and plan (1) Right ureteral stone: Code(s):
--- NOTE | ~2023-05-28 | XR_ITS ---
EXAMINATION: XR fluoroscopy no charge DATE: 05/28/2023 12:16 INDICATION: Right ureteral stone. TECHNIQUE: 4 intraoperative fluoroscopic views of the abdomen and pelvis were obtained. COMPARISON: Abdomen radiographs 05/27/2023 FINDINGS: There are no dilated loops of bowel. There is no visible urolithiasis. IMPRESSION: 1. No visible urolithiasis. Reviewed, dictated and finalized at location A. FIELD IMPRESSION: 1. No visible urolithiasis.
--- NOTE | 2023-05-28 06:43 | WPDHPUPDATE1 ---
History and Physical Update Update Date/Time: 05/28/23 06:43 History and Physical has been reviewed, including an updated exam of the patient. There are NO changes in the patient's condition. Risks, benefits, and alternatives have been discussed and questions answered. Patient agrees to proceed with procedure.
--- NOTE | 2023-05-28 10:10 | ECG_ITS ---
Measurements Intervals [place] Rate: 69 P: 51 HI: 156 QRS: 62 QRSD: 91 T: 31 QT: 387 QTc: 416 Interpretive Statements SINUS RHYTHM NORMAL ELECTROCARDIOGRAM COMPARED TO ECG 02/06/2022 08:39:51 NO SIGNIFICANT CHANGES Electronically Signed On 05-28-2023 13:30:34 UNDERGROUND HEAVY EQUIPMENT OPERATOR by Henry Keys M.D.
[2023-05-28] MEDS: LACTATED RINGERS 1,000 ML 30 ML IV CONT (10:41)
[2023-05-28 10:54] VITALS: BP 118/69; PULSE 70; RESP 16; TEMP 36.3; O2SAT 100; BMI 27.1
[2023-05-28] MEDS: ceFAZolin 2 GM/D5W 50 ML 2 GM/50 ML BAG IVPB (11:44)
[2023-05-28 12:17] VITALS: BP 105/68; PULSE 66; RESP 13; TEMP 36.7; O2SAT 99
--- NOTE | 2023-05-28 12:25 | W.PM.PROC2 ---
Procedure Note - Detailed Date of Procedure 05/28/23 Pre-op Diagnosis Right ureteral stone Post-op Diagnosis Same Procedure Performed Cystoscopy, right ureteroscopy with stone extraction Surgeon Franko Stevens MD Anesthesia General Description of Procedure The patient was brought to the operative suite where he is prepped and draped in a routine sterile fashion while in the dorsal lithotomy position after the uneventful induction of a general LMA anesthetic. A 19F rigid cystoscope was placed in the bladder. There are no urethral strictures. His prostatic urethra measures, approximately, 1.0cm with no median lobe enlargement. The bladder mucosa was endoscopically normal without hyperemia or neoplasm. There was a single, orthotopic ureteral orifice bilaterally. A 0.035 glidewire was advanced into the right renal pelvis under fluoroscopy. The distal ureter was dilated with an 8F/10F ureteral dilator. Ureteroscopy was undertaken with a short, tapered, semi-rigid ureteroscope and the stone was extracted with ease using a ureteroscopic biopsy forceps. Due to the ease of this manipulation I opted not to place a ureteral stent. The patient's bladder was emptied and was taken to the recovery room having tolerated this procedure well. Drains No Packing No Pathology Yes Condition Stable Disposition PACU
[2023-05-28 12:30] VITALS: BP 118/87; PULSE 78; RESP 14; O2SAT 100
[2023-05-28 12:45] VITALS: BP 126/93; PULSE 78; RESP 13; O2SAT 100
[2023-05-28] MEDS: fentaNYL CITRATE INJ (*CRX) 100 MCG/2 ML VIAL 25 MCG IV PUSH ×2 (12:55→12:57)
[2023-05-28 13:00] VITALS: BP 130/80; PULSE 80; RESP 14; O2SAT 100
[2023-05-28 13:30] VITALS: BP 129/88; PULSE 75; RESP 20
== END 2023-05-28 13:39 | disposition home or self-care (01) ==
PROVIDERS: PCP Family Medicine; Visit Provider Urology
PROC: (CPT 52352; principal; 2023-05-28 12:00)
DX: N20.1 Calculus of ureter (principal); I10 Essential (primary) hypertension; E78.5 Hyperlipidemia, unspecified
CPT/HCPCS: 52352; 82365; 88300; 93005; 99199; C1769; J0690; J1100; J2250; J2405; J2704; J3010; J7120

== ENCOUNTER 2024-03-28 12:43 | Outpatient (CLI) | payer OTHER, SELFPAY ==
--- NOTE | ~2024-03-28 | CT_ITS ---
Non-contrast CT scan of the Abdomen and Pelvis Clinical indication: Right flank pain Technique: 2.5 mm axial scans were obtained through the abdomen and pelvis without intravenous or or al contrast. Dose reduction technique was used on this scan by utilizing automated exposure control a nd iterative reconstruction technique. The dose-length product (DLP) was 858.68 mGy-cm. COMPARISON: 12/12/2020 Findings: Images through the lung bases reveal no abnormalities. There is no evidence of renal or ureteral calculi. The kidneys and the ureters are nondilated. There are small scattered probable hepatic cysts. Cholecystectomy clips are present. The spleen, panc reas, and adrenals appear normal. There is no aortic aneurysm. There is no evidence of bowel obstruction. Images through the pelvis were performed. There is no evidence of ascites or lymphadenopathy. Urinary bladder unremarkable. No pelvic mass seen. Impression: No significant abnormality seen. Reviewed, dictated and finalized at [facility]. Impression: No significant abnormality seen.
--- NOTE | ~2024-03-28 | XR_ITS ---
XR abdomen/kub 1V Ordering provider: Madhavi Morales, [employer] History: . Right flank pain . Comparison: May 10, 2023 FINDINGS: BOWEL: Nonobstructive bowel gas pattern. ORGANOMEGALY: None. SIGNIFICANT PATHOLOGIC CALCIFICATIONS: None. OTHER: No free air is seen under the diaphragm. IMPRESSION: NO ACUTE ABDOMINAL FINDINGS. Reviewed, dictated and finalized at location [facility].
== END 2024-03-28 12:44 | disposition home or self-care (01) ==
PROVIDERS: PCP Nurse Practitioner Family; Visit Provider Nurse Practitioner Family
DX: R10.9 Unspecified abdominal pain (principal); Z87.442 Personal history of urinary calculi
CPT/HCPCS: 74018; 74176

== ENCOUNTER 2024-04-04 09:17 | Emergency (ER) | payer OTHER, SELFPAY ==
--- NOTE | ~2024-04-04 | CT_ITS ---
CT of the Abdomen and Pelvis: Indication: Abdominal pain Technique: 2.5 mm axial scans were obtained through the abdomen and pelvis following intravenous adm inistration of 100 cc of Omnipaque 350. Dose reduction technique was used on this scan by utilizing a utomated exposure control and iterative reconstruction technique. The dose-length product (DLP) was 5 98.06 mGy-cm. COMPARISON: 03/28/2024 Findings: Scans through the lung bases are unremarkable. Several small hepatic cysts are present. Cholecystectomy clips are present. The spleen, pancreas, adr enals and kidneys are within normal limits. No evidence of aortic aneurysm. No lymphadenopathy. No bowel obstruction or bowel wall thickening. There is no evidence to suggest acute appendicitis. Images through the pelvis were performed. Urinary bladder unremarkable. No pelvic mass seen. No ascit es. Impression: No significant abnormalities seen. Reviewed, dictated and finalized at [facility]. Impression: No significant abnormalities seen.
[2024-04-04 09:23] VITALS: BP 133/86; PULSE 75; RESP 15; TEMP 36.4; O2SAT 100
[2024-04-04 09:39] VITALS: BP 132/78; PULSE 68; RESP 20; O2SAT 100
[2024-04-04 09:55] LABS: Basophils Percent Auto 0.5 % (0.2-1.2); Eosinophils Percent Auto 0.6 % (0-4.4); Hematocrit 45.3 % (42.0-52.0); Hemoglobin 14.7 g/dL (14.0-18.0); Immature Granulocyte Absolute 0.02 K/mm3 (0.00-0.031); Immature Granulocyte Percent A 0.3 % (0-0.5); Lymphocytes Absolute Auto 1.35 K/mm3 (0.9-3.2); Lymphocytes Percent Auto 21.9 % (18.3-44.2); Mean Corpuscular HGB Conc 32.5 g/dl (32-36); Mean Corpuscular Hemoglobin 29.3 pg (26-34); Mean Corpuscular Volume 90.4 fl (80-100); Mean Platelet Volume 9.5 fl (7.4-10.4); Monocytes Absolute Auto 0.8 K/mm3 (0.1-0.6); Monocytes Percent Auto 12.2 % (2.6-8.5); Neutrophils Percent Auto 64.5 % (45.5-73.1); Platelet Count Result 274 k/mm3 (150-375); Red Blood Count 5.01 M/mm3 (4.6-6.20); White Blood Count 6.2 K/mm3 (4.5-10.0)
[2024-04-04 10:01] VITALS: BP 124/81; PULSE 70; RESP 20; O2SAT 98
[2024-04-04 10:02] LABS: Add Urine Microscopic? NO; Alanine Aminotransferase 19 U/L (6-50); Albumin Level 4.2 g/dL (3.5-5.1); Alkaline Phosphatase 58 U/L (38-126); Anion Gap 7 mmol/L (4-12); Appearance Urine Clear (Clear); Aspartate Amino Transferase 29 U/L (17-59); Bilirubin Urine Negative (Negative); Bilirubin,Total 0.7 mg/dL (0.2-1.3); Blood Urea Nitrogen 22 mg/dL (9-20); Blood Urine Negative (Negative); Calcium 9.4 mg/dL (8.4-10.2); Carbon Dioxide 30 mmol/L (22-30); Chloride 101 mmol/L (98-107); Color Urine Yellow (Yellow); Estimated CRCL calculation 67 ml/min; Estimated Glomerular Filt Rate > 60; Glucose 96 mg/dL (65-110); Glucose Urine UA Negative (Negative); Ketones Urine Negative (Negative); Leukocyte Esterase Ur Negative LEU/UL (Negative); Lipase 156 U/L (23-300); Nitrate Urine Negative (Negative); Potassium 3.9 mmol/L (3.4-5.0); Protein Urine Negative (Negative); Sodium 138 mmol/L (137-145); Specific Grav Ur 1.014 (1.001-1.035); Urobilinogen Urine 0.2 mg/dL (<2.0); pH Urine 5.5 (5.0-9.0)
--- NOTE | 2024-04-04 10:12 | ED.ABDPAIN ---
HPI - Abdominal Pain General Chief Complaint: Abdominal Pain Stated Complaint: R side abd pain Time Seen by Provider: 04/04/24 09:38 Source: patient Mode of arrival: ambulatory Limitations: no limitations History of Present Illness HPI narrative: Patient is a 48-year-old male, with PMH of cholecystectomy, who presents the ED with report of right lower abdominal pain. Patient reports pain began over the weekend, but has been more constant over the last couple of days. Present throughout his right lower abdomen. Denies significant radiation to back, but does intermittently radiate into groin region. Notes long history of kidney stones but states this pain does not feel similar. Reports having urinary frequency, intermittent nausea, denies vomiting, fevers, dysuria, hematuria, diarrhea, constipation. Took Tylenol for his pain last night. Related Data Home Medications Medication Instructions Recorded Confirmed acetaminophen 500 mg tablet 500 mg PO Q6H 04/03/24 04/03/24 Allergies Allergy/AdvReac Type Severity Reaction Status Date / Time No Known Allergies Allergy Verified 04/04/24 09:18 Review of Systems Review of Systems: All systems reviewed & are unremarkable except as noted in HPI. All systems reviewed & are unremarkable except as noted in HPI and below PMFSH Past Medical History Medical History Anxiety BPH loc w urin obs/LUTS Dysphagia Essential hypertension Gallbladder disorder History of headache Insomnia Liver disease Mass of left side of neck Medial epicondylitis, right elbow Mixed hyperlipidemia Nephrolithiasis Right rotator cuff tear Right shoulder pain Right ureteral stone Screen for colon cancer Screening for malignant neoplasm of prostate declined Seasonal allergic rhinitis Stress Tendinopathy Tremors of nervous system Surgical History Surgical History Cubital tunnel syndrome on right Right ulnar nerve decompression February 10, 2022 History of knee surgery Left due to meniscus tear 2009 and 2010 History of lithotripsy History of shoulder surgery Left x2 due to rotator cuff Family History Family History Father Family history of pancreatic cancer Smoker in home Mother Hypertension Social History Social History Smoking status: Never smoker Second hand tobacco smoke exposure: No Alcohol intake: current Drinks per week: 6 Alcohol use details: socially Substance use: never Substance use type: does not use Do You Feel Safe in your Home?: Yes Lack of Transportation: No Lack of Food: Never True Current Housing: I Have Housing Concerned About Future Housing: No Difficulty Paying Gas/Electric Bills: No Difficulty Paying for Meds: No Currently Unemployed: YES Education: Bachelor's Degree Difficulty w/ Childcare or Family Care: No Living arrangements: with family Additional living arrangements comments: Occupation/Education: occupation 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 HEAD: Normocephalic, atraumatic. RESPIRATORY: Airway patent, respirations nonlabored. Clear to auscultation bilaterally, no rales, rhonchi, wheezing. CARDIOVASCULAR: Regular rate and rhythm without murmurs, rubs, or gallops. ABDOMINAL: Soft, Mild tenderness in right mid and lower abdomen, no rebound. Nondistended. Normoactive BS. MUSCULOSKELETAL: Moves all extremities. No gross deformities. SKIN: Warm, dry, n
[2024-04-04 10:31] VITALS: BP 132/83; PULSE 74; RESP 16; O2SAT 99
[2024-04-04 11:15] VITALS: PULSE 75; RESP 19; O2SAT 100
[2024-04-04 12:15] VITALS: BP 132/86; PULSE 77; RESP 17; TEMP 36.8; O2SAT 100
== END 2024-04-04 12:16 | disposition home or self-care (01) ==
PROVIDERS: Emergency Provider Physician Assistant; PCP Family Medicine
DX: R10.31 Right lower quadrant pain (principal); F41.9 Anxiety disorder, unspecified; I10 Essential (primary) hypertension
CPT/HCPCS: 36415; 74177; 80053; 81003; 83690; 85025; 99284; Q9967

== ENCOUNTER 2024-04-29 10:31 | Outpatient (CLI) | payer OTHER, SELFPAY ==
--- NOTE | ~2024-04-29 | MR_ITS ---
MRI of the abdomen: Clinical indication: Abdominal pain. Technique: Coronal SSFSE ARC, WATER:coronal LAVA-FLEX, Coronal 2D FIESTA FatSat, Axial SSFSE BH ARC, Axial 3D DualEcho BH, Axial SSFSE-IR, Axial DWI b=500, Axial 2D FIESTA FatSat, pre and dynamic postco ntrast Axial LAVA ARC, postcontrast Coronal In and Opposed phase LAVA FLEX. Following intravenous adm inistration of 17 cc MultiHance gadolinium, T1-weighted fat-sat imaging was performed in the axial an d coronal planes. Findings: Gallbladder absent. The common bile duct is normal in course and caliber. No filling defect s are seen within the CBD. No evidence of intrahepatic biliary ductal dilatation. The pancreatic duct is normal in size. Several small hepatic cysts are present. Spleen, pancreas, adrenals, kidneys appear normal. The aorta and the paraaortic regions appear normal. Impression: No significant abnormality seen. Reviewed, dictated and finalized at location . [facility] Impression: No significant abnormality seen.
== END 2024-04-29 10:32 | disposition home or self-care (01) ==
PROVIDERS: PCP Family Medicine; Visit Provider Family Medicine
DX: R10.31 Right lower quadrant pain (principal)
CPT/HCPCS: 74183; A9577

== ENCOUNTER 2024-08-04 01:44 | Day surgery (SDC) | payer OTHER, SELFPAY ==
[2024-07-21 11:08] VITALS: BMI 27.3
--- OUTSIDE RECORDS SUMMARY | 2024-08-04 01:47 | XMS_ITS | Clinical Summary ---
Author Organization [facility] [address] Address [address] [place] [address] Care Team Providers Care Timber Incisor Operator Name Role Phone Evelyn Ford NP Primary Care Provider [phone] Lorraine Li POULTRY BARN MANAGER Unavailable [phone] Allergies No known active allergies Medications atorvastatin (LIPITOR) 10 mg tabletIndicatio ns:hyperlipidem ia Take 1 tablet (10 mg total) by mouth every morning 5 8 Active lisinopril (PRINIVIL,ZESTR IL) 5 mg tabletIndicatio ns:hypertension Take 1 tablet (5 mg total) by mouth every morning 2 8 Active zolpidem (AMBIEN) 10 mg tablet Take 2 tablets (20 mg total) by mouth nightly 60 tablet 1 Active busPIRone (BUSPAR) 10 mg tabletIndicatio ns:Generalized Anxiety Disorder Take 1 tablet (10 mg total) by mouth 2 (two) times a day 2 Active acetaminophen (TYLENOL) 500 mg tablet Take 2 tablets (1,000 mg total) by mouth as needed for pain Active mirtazapine (REMERON) 15 mg tablet Take 1 tablet (15 mg total) by mouth nightly 90 tablet 1 4 Active Additional Information Patient not taking.Reported on 04/17/2024 escitalopram (LEXAPRO) 20 mg tablet Take 1 tablet (20 mg total) by mouth every morning 90 tablet [address] (PROTONIX) 40 mg EC tablet Take 1 tablet (40 mg total) by mouth daily 30 tablet 1 4 Active Active Problems Problem Noted Date Diagnosed Date Chronic insomnia 09/15/2023 Assessment & Plan (05/04/2024 9:12 AM AUTOMOTIVE SALES SPECIALIST): Continues follow up with sleep specialist. 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 Recommend continuing to address insomnia with CBTI until the zolpidem can be tapered and scheduled use discontinued. This will be a slow process. Assessment & Plan (11/11/2020 12:44 PM CDT): Now that he is no longer working variable rotating shift work and is on straight day shift, his sleep is consolidated at night. He is no longer taking Ambien 10mg at his nocturnal awakening. He falls asleep easily at bedtime, returns to sleep easily after using restroom in the night, and feels rested during the day. The next step is to stay where he is for the next three weeks to ensure sustained period of good sleep and then slowly taper the bedtime dose of Ambien 20mg to 15mg. He agrees to do this one week prior to his last appointment with me before my m[facility] so that we can navigate any challenges that may arise, reinforcing CBTI techniques. Thereafter, I expect he will be able to taper and possibly discontinue the hypnotic altogether under the care of my colleague in the [facility]. Assessment & Plan (10/18/2020 12:26 PM CDT): Shift work is finally coming to an end after about 20 years. He is now tapering the zolpidem from 20mg at bedtime plus 10mg at nocturnal awakening to zolpidem 15mg at bedtime plus 5mg at nocturnal awakening. However, this 5mg is not helping so we are switching to 20mg at bedtime only and nothing at his nocturnal awakening except CBTI strategies. He is determined and committed to following through with CBTI plan to manage nocturnal awakenings. He has always gotten up in the night to urinate and that will continue -- most important skill is being able to return to sleep, which he is working on and doing better the past night or two. As progress is sustained and once he is falling asleep easily at bedtime and sleeping confidently through the night, we will slowly taper the bedtime zolpidem to 15mg. Plan is to eventually eliminate scheduled hypnotic altogether which can reasonably take months to accomplish. Care has been coordinated with pharmacists in his community and PCP as well as who is actively involved in his care. Assessment & Plan (09/10/2020 11:24 AM CDT): He is obtaining sufficient sleep with current medication and nonpharmacologic approach to managing his shift-work sleep disorder. Anticipated end of shift work is next month so plan is to begin taper zolpidem then. Assessment & Plan (06/10/2020 1:35 PM AUTOMOTIVE SALES SPECIALIST): [place] of day shifts looms in near future which will help alleviate the symptoms of this disorder. Assessment & Plan (05/13/2020 3:10 PM AUTOMOTIVE SALES SPECIALIST): Continue current plan as noted under Insomnia. Assessment & Plan (03/22/2020 4:17 PM CDT): Recent early fills are due to his choosing to revert back to the previously effective hypnotic regimen so we discussed the risks and benefits of this approach. For many years of rotating shift work he has done well with high doses of zolpidem (20mg at bedtime and 10mg prn then scheduled at nocturnal awakenings), managing to sleep well and function well. After his became concerned about his intoxicated behaviors after taking the bedtime dose, she participated in his care and he actively engaged in regular CBT-I appointments to do what we could to optimize/reduce dosing. We will continue the medication regimen, monthly CBT-I appointments and interim support, 's involvement in care, and I will seek 2nd opinion to make sure I'm not missing anything else that could be done to optimize his care and minimize risks. I anticipate that the medication burden can be reduced once he has achieved his careers goals and is working straight day shift (anticipated in 1.5 years). Assessment & Plan (03/12/2020 9:58 AM CDT): Shiftworker with rotating shifts. Fragmented sleep persists and is being addressed with CBT-I and scheduled medications. Assessment & Plan (02/02/2020 3:02 PM CDT): He continues to work rotating shifts. We are attempting to optimize behavioral management of his sleep so scheduled hypnotics can be streamlined to reduce realized and potential side effects. Assessment & Plan (01/16/2020 12:26 PM CDT): Sleep has deteriorated in past five months, likely associated with psychosocial stressors both personal and professional but then perpetuated by unhelpful sleep habits. He has escalated use of already-high dose of hypnotic. We focussed on non-pharmacologic strategies to address his insomnia, mobilizing support of spouse, to address his insomnia so the hypnotic dose can be reduced. I have attempted multiple times to obtain insurance coverage of a safer, shorter-acting medication for his nocturnal awakening but to no avail -- we will proceed again with efforts toward that end. Assessment & Plan (11/13/2019 9:00 AM CDT): Stable. Continues to achieve adequate sleep to function well personally and occupationally despite rotating shift work and lifestyle demands that reinforce fragmented sleep. Denies side effects from chronic hypnotic use. Assessment & Plan (06/05/2019 4:02 PM AUTOMOTIVE SALES SPECIALIST): Given his circumstances, he is sleeping well. He continue to rely upon high doses of scheduled hypnotics to obtain adequate sleep but this is working for him. He denies side effects and describes high level of functioning at home and at work. Assessment & Plan (02/13/2019 1:24 PM CDT): Although he is obtaining adequate sleep, he is having more difficulty returning to sleep and thus relying more on repeated dosing of hypnotic at nocturnal awakening. I suspect psychophysiologic arousal may be contributing so we focused on retraining his brain how to fall asleep rather than become engaged at his awakenings. To minimize the potential side effects of high dose hypnotics to manage his shift-work sleep disorder, I'd like to resume the more effective, lower-dose and shorter-acting Intermezzo at his nocturnal awakening to replace the Ambien 10mg he takes at that time. Insurance did not cover Intermezzo in the past. We will try it for the next month and if it works better than current strategy, I will contact his insurance company if needed. Assessment & Plan (09/01/2018 10:17 AM AUTOMOTIVE SALES SPECIALIST): He continues to do well with current management strategy. 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 Our plan will be to continue the scheduled hypnotic as he retrains his brain how to sleep in a consolidated fashion at night and then slowly taper and discontinue the zolpidem altogether. He is likely to have difficulty maintaining sleep as he transitions to nighttime sleeping so we will be prepared to focus on the skill of returning to sleep, emphasizing relaxation techniques as well as components of stimulus control (avoiding clockwatching, building sleep drive, associating bed with sleep). Anticipatory guidance provided today, along with stimulus control handout. 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 He continues to sleep well with current effective and well tolerated management strategy, without adverse effects from hypnotic. We will continue to monitor closely and when he is no longer working rotating shift work, we will plan to taper and discontinue scheduled use of hypnotic, diligently employing CBT-I. Persistent disorder of initiating or maintaining sleep 08/26/2012 Assessment & Plan (12/10/2020 12:59 PM CDT): Now that shiftwork has ended and he has established a regular sleep routine with scheduled zolpidem 20mg at bedtime, the next step in care is to continue to build confidence in his managing his sleep nonpharmacologically. He slept relatively well with low dose of zolpidem 10mg for two nights recently when he ran out and an early refill was not permitted; I suspect he has more psychologic reliance on the hypnotic than physiologic dependence. Working with a therapist will be an important component of therapy. I recommend the next sleep therapist focus on the cognitive piece of CBTI as well as reinforcing stimulus control and relaxation/mindfulness. Assessment & Plan (11/11/2020 12:30 PM CDT): As noted under CRSWD-shift work type. Assessment & Plan (09/10/2020 11:25 AM CDT): Continue current plan for now. Assessment & Plan (06/10/2020 1:39 PM AUTOMOTIVE SALES SPECIALIST): Sleeps well with current regimen of scheduled hypnotic, CBT-I and spouse involvement for medication management. No adverse effects of high dose regimen of zolpidem; I suspect he is rapid metabolizer. I anticipate that segmented sleep will resolve when adequate opportunity for sleep at the same time every night occurs with stable day shift schedule. If sleep does not become more consolidated over course of next few months, will repeat the sleep study (normal in 2008) based on snoring and interrupted sleep. Assessment & Plan (05/13/2020 3:10 PM AUTOMOTIVE SALES SPECIALIST): Sleeping well and functioning well without side effects from current medication regimen. He denies daytime sleepiness or fatigue. Although he snores, previous sleep study identified absence of sleep apnea. Will stay the course with treatment as long as he is working shift work: Close monitoring of medication use and regular CBT- I sessions to reinforce nonpharmacologic strategies and facilitate adherence. Assessment & Plan (03/12/2020 10:03 AM CDT): Because Intermezzo at his nocturnal awakening is less potent than the zolpidem 10mg he was taking, this creates the optimal opportunity to reinforce the practice of sleep-promoting habits. We again reviewed how his habitual behaviors in the night (clockwatching -- which he did not realize he was still doing, active household tasks, and thoughts/beliefs about sleep) are perpetuating his insomnia. We also discussed how change is slow and requires diligent practice. We refined CBT-I strategy, expanding relaxation techniques, cognitive restructuring, and stimulus control. Will continue monthly appointments until his sleep improves. Assessment & Plan (02/02/2020 3:00 PM CDT): He is diligently following the CBT-I plan and making progress with his sleep. He was able to obtain Intermezzo which is more effective and better tolerated. We refined CBT-I strategy today. Assessment & Plan (01/16/2020 12:27 PM CDT): As noted under CRSWD-shift work type. Hypertension Assessment & Plan (05/04/2024 9:13 AM AUTOMOTIVE SALES SPECIALIST): BP controlled in office, continues Lisinopril 5 mg. Updated labs ordered. Hyperlipidemia Assessment & Plan (05/04/2024 9:12 AM AUTOMOTIVE SALES SPECIALIST): Continues Lipitor, no side effects reported. Updated labs ordered. Anxiety Assessment & Plan (05/04/2024 9:14 AM AUTOMOTIVE SALES SPECIALIST): Stable on Lexapro and Buspar. Encounters Date Type Department Care Team Description 05/04/2024 4:56 PM AUTOMOTIVE SALES SPECIALIST - 05/04/2024 11:59 PM AUTOMOTIVE SALES SPECIALIST Hospital Encounter [address] [address] Vitamin D deficiency; Encounter for hepatitis C screening test for low risk patient; Encounter for screening examination for intermediate hyperglycemia and diabetes mellitus; Primary hypertension Discharge Disposition: Discharge to home or self care 05/04/2024 8:45 AM AUTOMOTIVE SALES SPECIALIST Lab [facility] at [address] [address] Hyperlipidemia (Primary Dx); Hypertension 05/04/2024 8:00 AM AUTOMOTIVE SALES SPECIALIST Office Visit [facility] at [address] [address] Evelyn Ford NP Primary hypertension (Primary Dx); Mixed hyperlipidemia; Epigastric pain; Chronic insomnia; Encounter for screening examination for intermediate hyperglycemia and diabetes mellitus; Encounter for hepatitis C screening test for low risk patient; Vitamin D deficiency; Anxiety 05/04/2024 Orders Only [facility] at [address] [address] Provider, MD Lynette from Last 3 Months Immunizations Name Administration Dates Next Due Hep A / Hep B 03/13/2005 Influenza, Quadrivalent, Spl it, Preservative Free, Intramuscular 03/21/2020,03/30/2019,03/28/2018,03/27 Influenza, Split 07/07/2012 Influenza, Trivalent, IM (MDV) 03/16/2017,2013 Influenza, Trivalent, Preser vative Free, Intramuscular 04/02/2016,04/25/2015 Influenza, Unspecified 03/28/2023 Td, adsorbed 03/13/2005 Surgical History Surgery Date Site/Laterality Comments ELBOW SURGERY 06/28/2021 - 06/27/2022 Right KNEE SURGERY 06/28/2007 - 06/27/2008 Left x 2 SHOULDER SURGERY 06/28/2011 - 06/27/2012 Left x 3 GALLBLADDER SURGERY 06/28/2016 - 06/27/2017 ARTHROSCOPY SHOULDER W/ OPEN ROTATOR CUFF REPAIR 06/18/2023 Right LITHOTRIPSY x14 Medical History Medical History Date Comments Hyperlipidemia Hypertension Insomnia Anxiety Family History Medical History Relation Name Comments Liver cancer Mother Anesthesia problems Neg Hx Sleep apnea Neg Hx Relation Name Status Comments Mother Social History Tobacco Use Types Packs/Day Years Used Date Smoking Tobacco: Never Smokeless Tobacco: Never Tobacco Cessation:Counseling Given: Not Answered AUDIT-C Answer Date Recorded Q1: How often do you have a drink containing alc ohol? 2-4 times a month 07/07/2022 Q2: How many drinks containi ng alcohol do you have on a typical day when you are drinking? 5 or 6 07/07/2022 Q3: How often do you have si x or more drinks on one occasion? Monthly 07/07/2022 PHQ-2 Answer Date Recorded PHQ-2 Total Score (If total score is 3 or more points, staff should administer the PHQ-9) 0 05/04/2024 Personal Safety Answer Date Recorded Getting School Help Needed Denies 06/09 Sex and Gender Information Value Date Recorded Sex Assigned at Not on file Legal Sex Male 12:27 AM AUTOMOTIVE SALES SPECIALIST Gender Identity Not on file Sexual Orientation Not on file Obstetrics History Last Filed Vital Signs Vital Sign Reading Time Taken Comments Blood Pressure 94/62 05/04/2024 8:07 AM AUTOMOTIVE SALES SPECIALIST Pulse 78 05/04/2024 8:07 AM AUTOMOTIVE SALES SPECIALIST Temperature 36.2 C (97.2 F) 05/04/2024 8:07 AM AUTOMOTIVE SALES SPECIALIST Respiratory Rate 18 04/17/2024 2:33 PM CDT Oxygen Saturation 96% 05/04/2024 8:07 AM AUTOMOTIVE SALES SPECIALIST Inhaled Oxygen Concentration - - Weight 86.2 kg (190 lb) 05/04/2024 8:07 AM AUTOMOTIVE SALES SPECIALIST Height 175.3 cm (5' 9 ) 05/04/2024 8:07 AM AUTOMOTIVE SALES SPECIALIST Body Mass Index 28.06 05/04/2024 8:07 AM AUTOMOTIVE SALES SPECIALIST Plan of Treatment Health Maintenance Due Date Last Done Comments Regular Well Visit/Exam 18-64 10/14/1993 DTaP/Tdap/Td Vaccine (1 - Tdap) 03/14/2005 03/13/2005 Covid-19 Vaccine (3 - season) 2024 08/22/2020, 07/26/2020 Influenza Vaccine (#1) 2024 , 03/28/2023, 03/21/2020, Additional history exists Depression Screening 05/04/2025 05/04/2024 Colon Cancer Screening-DNA Stool 05/04/2026 05/04/2023 Hepatitis C Screening Completed 05/04/2024 Pneumococcal vaccine <65 Aged Out No longer eligible based on patient's age to complete this topic Medical Devices Implanted Type Area Advanced Practice Psychiatric Nurse Device Identifier Shelf Expiration Date Model / Serial / Lot [employer] Inspire 3 Electrode Cuff Tunnel Brown Lead Neurostimulator Sterile 4063 - [id number] - [id number] Implanted:Qty: 1 on 07/27/2022 by Peter Yuen MD at [facility] Right: Neck [employer] 07/06/2025 4063 / [id number] / [employer] Inspire Generator 3028 - [id number] - [id number] Implanted:Qty: 1 on 07/27/2022 by Peter Yuen MD at [facility] Right: Neck [employer] 06/15/2025 3028 / [id number] / [employer] Lead Neurostimulator Inspire Respiratory Sens Cycle Strl Lf 4340 - [id number] - [id number] Implanted:Qty: 1 on 07/27/2022 by Peter Yuen MD at [facility] Right: Neck [employer] 07/04/2025 4340 / [id number] / Procedures Procedure Name Priority Date/Time Associated Diagnosis Comments EGFR Routine 05/04/2024 9:00 AM AUTOMOTIVE SALES SPECIALIST Primary hypertension DIFFERENTIAL AUTO Routine 05/04/2024 9:0 0 AM AUTOMOTIVE SALES SPECIALIST Primary hypertension CBC WITH AUTO DIFFERENTIAL Routine 05/04/2024 9:00 AM AUTOMOTIVE SALES SPECIALIST Primary hypertension COMPREHENSIVE METABOLIC PANEL Routine 05/04/2024 9:00 AM AUTOMOTIVE SALES SPECIALIST Primary hypertension LIPID PANEL Routine 05/04/2024 9:00 AM AUTOMOTIVE SALES SPECIALIST Primary hypertension THYROID FUNCTION CASCADE Routine 05/04/2024 9:00 AM AUTOMOTIVE SALES SPECIALIST Primary hypertension HEMOGLOBIN A1C Routine 05/04/2024 9:00 AM AUTOMOTIVE SALES SPECIALIST Encounter for screening examination for intermediate hyperglycemia and diabetes mellitus VITAMIN D 25 HYDROXY Routine 05/04/2024 9:00 AM AUTOMOTIVE SALES SPECIALIST Vitamin D deficiency HEPATITIS C ANTIBODY Routine 05/04/2024 9:00 AM AUTOMOTIVE SALES SPECIALIST Encounter for hepatitis C screening test for low risk patient from Last 3 Months Results * eGFR (05/04/2024 9:00 AM AUTOMOTIVE SALES SPECIALIST) eGFR 74 >=60 mL/min/1. 73 m2 Comment: Interpretive Data Reference Interval Normal >/= 90 mL/min/1.73m2 Mildly decreased* 60 - 89 mL/min/1.73m2 Mildly to moderately decreased 45 - 59 mL/min/1.73m2 Moderately to severely decreased 30 - 44 mL/min/1.73m2 Severely decreased 15 - 29 mL/min/1.73m2 Kidney Failure < 15 mL/min/1.73m2 *Relative to young adult level Estimated glomerular filtration rate is determined by the 2020 CKD-EPI equation recommended by the National Kidney Foundation (A Unifying Approach to GFR Estimation: Recommendations of the NKF-ASK Task Force on Reassessing the Inclusion of Race in Diagnosing Kidney Disease, JASN 2020). The CKD-EPI equation should not be used for patients with unstable renal function and has not been validated in children and those over 70. Current interpretive data was last reviewed 2021. Blood 05/04/2024 9:00 AM AUTOMOTIVE SALES SPECIALIST 05/04/2024 5:47 PM AUTOMOTIVE SALES SPECIALIST us Evelyn Ford NP LAB BLOOD ORDERABLES Final Resul t [facility] [id number] Department [place] [address] * Differential, auto (05/04/2024 9:00 AM AUTOMOTIVE SALES SPECIALIST) Neutrophil abs 3.8 1.5 - 6.5 K/cumm Imm gran abs 0.0 0.0 - 0.1 K/cumm [facility] Lymphocyte abs 1.3 0.8 - 3.3 K/cumm [facility] Monocyte abs 0.5 0.2 - 0.8 K/cumm [facility] Eosinophil abs 0.0 0.0 - 0.5 K/cumm [facility] Basophil abs 0.0 0.0 - 0.1 K/cumm [facility] Neutrophil pct 66.6 % [facility] Comment: Interpretive Data Percent cell count reference ranges are not reported, since discordance with absolute values may lead to misinterpretation of CBC data. Current Interpretive Data was last revised on 2017. Imm gran pct 0.4 % [facility]IE Comment: Interpretive Data Percent cell count reference ranges are not reported, since discordance with absolute values may lead to misinterpretation of CBC data. Current Interpretive Data was last revised on 2017. Lymphocyte pct 22.5 % CERNER Comment: Interpretive Data Percent cell count reference ranges are not reported, since discordance with absolute values may lead to misinterpretation of CBC data. Current Interpretive Data was last revised on 2017. Monocyte pct 9.3 % CERNER Comment: Interpretive Data Percent cell count reference ranges are not reported, since discordance with absolute values may lead to misinterpretation of CBC data. Current Interpretive Data was last revised on 2017. Eosinophil pct 0.7 % CERNER Comment: Interpretive Data Percent cell count reference ranges are not reported, since discordance with absolute values may lead to misinterpretation of CBC data. Current Interpretive Data was last revised on 2017. Basophil pct 0.5 % [facility] Comment: Interpretive Data Percent cell count reference ranges are not reported, since discordance with absolute values may lead to misinterpretation of CBC data. Current Interpretive Data was last revised on 2017. Blood 05/04/2024 9:00 AM AUTOMOTIVE SALES SPECIALIST 05/04/2024 5:38 PM AUTOMOTIVE SALES SPECIALIST us Evelyn Ford NP LAB BLOOD ORDERABLES Final Resul t Performing Organization Address [facility] Co de Phone Number [facility] [id number] [address] [place] [address] * Thyroid Function Mcduffie (05/04/2024 9:00 AM AUTOMOTIVE SALES SPECIALIST) TSH 1.30 0.30 - 4.20 mcIUnit/mL Blood 05/04/2024 9:00 AM AUTOMOTIVE SALES SPECIALIST 05/04/2024 5:38 PM AUTOMOTIVE SALES SPECIALIST us Evelyn Ford POULTRY BARN MANAGER LAB BLOOD ORDERABLES Final Resul t Performing Organization Address [facility] Co de Phone Number [facility] [address] [address] Department [place] [address] * (ABNORMAL) CBC with auto differential (05/04/2024 9:00 AM AUTOMOTIVE SALES SPECIALIST) Pathologist [facility] WBC 5.7 3.8 - 9.9 K/cumm Hgb 14.4 13.0 - 17.5 g/dL [facility] Hct 47.4 38.9 - 50.3 % [facility] Plt 293 150 - 400 K/cumm [facility] MPV 10.5 9.1 - 12.3 fL [facility] RBC 5.19 4.30 - 5.80 M/cumm [facility] MCV 91.3 81.3 - 96.4 fL [facility] MCH 27.7 27.1 - 33.3 pg [facility] MCHC 30.4(L) 32.3 - 35.7 g/dL [facility] RDW CV 12.0 11.1 - 14.9 % [facility] RDW SD 40.4 35.7 - 48.1 fL [facility] NRBC abs 0.00 0.00 - 0.01 K/cumm [facility] Blood 05/04/2024 9:00 AM AUTOMOTIVE SALES SPECIALIST 05/04/2024 5:38 PM AUTOMOTIVE SALES SPECIALIST us Evelyn Ford NP LAB BLOOD ORDERABLES Final Resul t [facility] [id number] [address] Department [place] [address] * Hepatitis C antibody Blood (05/04/2024 9:00 AM AUTOMOTIVE SALES SPECIALIST) Pathologist [facility] Hep C Ab Nonreactive Nonreactive Comment: Interpretive Data Nonreactive: Antibodies to HCV not detected. Does NOT exclude the possibility of recent exposure to HCV. Equivocal: Equivocal for HCV antibodies. Supplemental molecular testing will be automatically performed to determine infection status in accordance with current CDC screening recommendations. Reactive: Positive for HCV antibodies. This may represent current or past HCV infection. Supplemental molecular testing will be automatically performed to determine current infection status in accordance with current CDC screening recommendations. Interpretive data was last revised on 2019. Blood 05/04/2024 9:00 AM AUTOMOTIVE SALES SPECIALIST 05/04/2024 5:38 PM AUTOMOTIVE SALES SPECIALIST us Evelyn Ford POULTRY BARN MANAGER LAB MICROBIOLOGY - GENERAL ORDER VERONIKA Final Result Performing Organization Address [facility] de Phone Number KAYLIE LEONARD [address] [place] [address] * Vitamin D 25 hydroxy (05/04/2024 9:00 AM AUTOMOTIVE SALES SPECIALIST) [facility] Vitamin D 25-OH 44 30 - 80 ng/mL Blood 05/04/2024 9:00 AM AUTOMOTIVE SALES SPECIALIST 05/04/2024 5:38 PM AUTOMOTIVE SALES SPECIALIST us Moisemanjula Ford POULTRY BARN MANAGER LAB BLOOD ORDERABLES Final Resul t Performing Organization Address [facility] de Phone Number KAYLIE LEONARD [address] [address] [facility] [place] [address] * (ABNORMAL) Hemoglobin A1c (05/04/2024 9:00 AM AUTOMOTIVE SALES SPECIALIST) [facility] Hgb A1C 5.7(H) 4.0 - 5.6 % Estimated Average Glucose 117 mg/dL KAYLIE LEONARD Comment: The ADA recommends reporting an estimated Average Glucose (eAG) with all Hemoglobin A1c results using the equation derived from a study of 507 normal and diabetic adults. Minority populations were underrepresented and children were not included. (Diabetes Care 31:9336-8231, 2008). The eAG is not equivalent to a fasting glucose. Blood 05/04/2024 9:00 AM AUTOMOTIVE SALES SPECIALIST 05/04/2024 5:38 PM AUTOMOTIVE SALES SPECIALIST us Evelyn Ford NP LAB BLOOD ORDERABLES Final Resul t Performing Organization Address [facility] Co de Phone Number KAYLIE LEONARD [address] [place] [address] * Lipid panel (05/04/2024 9:00 AM AUTOMOTIVE SALES SPECIALIST) [facility] Cholesterol 161 30 - 199 mg/dL Comment: Interpretive Data Ages < or = 19 years Acceptable: <170 mg/dL Borderline high: 170-199 mg/dL High: >or= 200 mg/dL Ages > or = 20 years Desirable: <200 mg/dL Borderline high: 200-239 mg/dL High: >or= 240 mg/dL Literature References: 1. Expert Panel on Integrated Guidelines for Cardiovascular Health and Risk Reduction in Children and Adolescents. Pediatrics 2011;128:S213 2. NCEP Expert Panel. Circulation 2004;110:227 Current Interpretive Data was last revised on 2018. Triglycerides 73 <=149 mg/dL KAYLIE Comment: Interpretive Data Ages < or = 9 years Acceptable: <75 mg/dL Borderline high: 75-99 mg/dL High: >or= 100 mg/dL Ages 10 to 20 years Acceptable: <90 mg/dL Borderline high: 90-129 mg/dL High: >or= 130 mg/dL Ages > or = 20 years Desirable: <150 mg/dL Borderline high: 150-199 mg/dL High: 200-499 mg/dL Very high: >or= 499 mg/dL Literature References: 1. Expert Panel on Integrated Guidelines for Cardiovascular Health and Risk Reduction in Children and Adolescents. Pediatrics 2011;128:S213 2. NCEP Expert Panel. Circulation 2004;110:227 Current Interpretive Data was last revised on 2018. HDL 62 >=40 mg/dL KAYLIE Comment: Interpretive Data Ages < or = 19 years Acceptable: >45 mg/dL Borderline low: 40-45 mg/dL Low: <40 mg/dL Ages > or = 20 years Desirable: >or= 60 mg/dL Low: <40 mg/dL Literature References: 1. Expert Panel on Integrated Guidelines for Cardiovascular Health and Risk Reduction in Children and Adolescents. Pediatrics 2011;128:S213 2. NCEP Expert Panel. Circulation 2004;110:227 Current Interpretive Data was last revised on 2018. LDL, calculated 85 <=129 mg/dL KAYLIE Comment: Interpretive Data Ages < or = 19 years Acceptable: <110 mg/dL Borderline high: 110-129 mg/dL High: >or= 130 mg/dL Ages > or = 20 years Optimal: <100 mg/dL Near optimal: 100-129 mg/dL Borderline high: 130-159 mg/dL High: >160 mg/dL Calculated using the Huang LDL-C estimating equation. This equation was implemented on 2024. Prior to this date LDL-C was estimated using the Friedewald equation. Literature References: 1. Expert Panel on Integrated Guidelines for Cardiovascular Health and Risk Reduction in Children and Adolescents. Pediatrics 2011;128:S213 2. NCEP Expert Panel. Circulation 2004;110:227 3. Sal M et al. TANJA Cardiol. 2020 October 26;5(5):540-548. doi: 10.1001/jamacardio.2020.0013 Current Interpretive Data was last revised on 2024. Non-HDL Cholesterol 99 mg/dL CERNER Comment: Interpretive Data Ages < or = 19 years Acceptable: <120 mg/dL Borderline high: 120-144 mg/dL High: >145 mg/dL Ages > or = 20 years When triglycerides are >200 mg/dL, Non-HDL cholesterol is a secondary target of therapy with treatment goals that are 30 mg/dL greater than the LDL cholesterol target. Literature References: 1. Expert Panel on Integrated Guidelines for Cardiovascular Health and Risk Reduction in Children and Adolescents. Pediatrics 2011;128:S213 2. NCEP Expert Panel. Circulation 2004;110:227 Current Interpretive Data was last revised on 2018. Chol/HDL ratio 3 CERNER Blood 05/04/2024 9:00 AM AUTOMOTIVE SALES SPECIALIST 05/04/2024 5:38 PM AUTOMOTIVE SALES SPECIALIST us Evelyn Ford POULTRY BARN MANAGER LAB BLOOD ORDERABLES Final Resul t [facility] [address] [address] Department [place] [address] * Comprehensive metabolic panel (05/04/2024 9:00 AM AUTOMOTIVE SALES SPECIALIST) Sodium 139 135 - 145 mmol/L Potassium, pl 4.2 3.3 - 4.9 mmol/L CERNER Chloride 102 97 - 110 mmol/L [facility] CH CO2 27 22 - 32 mmol/L [facility] CH Anion gap 10 2 - 15 mmol/L [facility] CH BUN 20 6 - 25 mg/dL [facility] CH Creatinine 1.21 0.80 - 1.30 mg/dL [facility] CH Glucose 88 70 - 199 mg/dL [facility] Comment: Interpretive Data Fasting glucose >/= 126 mg/dl is diagnostic for diabetes. Fasting is defined as no caloric intake for at least 8 hours. Fasting glucose between 100 mg/dl to 125 mg/dl is diagnostic of prediabetes. In a patient with classic symptoms of hyperglycemia or hyperglycemic crisis, a random glucose >/= 200 mg/dl is diagnostic for diabetes. In the absence of unequivocal hyperglycemia, results should be confirmed by repeat testing. The classification and Diagnosis of Diabetes Diabetes Care 2021; 46: S19-S40. Current interpretive data was last revised 2022. Calcium 9.8 8.5 - 10.3 mg/dL [facility] Bilirubin, total 0.5 0.1 - 1.2 mg/dL [facility] CH Protein, pl 6.9 6.5 - 8.5 g/dL [facility] Albumin 4.4 3.5 - 5.0 g/dL [facility] Alk phos 59 40 - 130 Units/L [facility] ALT 10 7 - 55 Units/L [facility] AST 22 10 - 50 Units/L [facility] Blood 05/04/2024 9:00 AM AUTOMOTIVE SALES SPECIALIST 05/04/2024 5:38 PM AUTOMOTIVE SALES SPECIALIST Evelyn Ford POULTRY BARN MANAGER LAB BLOOD ORDERABLES Final Resul t KAYLIE [address] [address] Department [place] [address] from Last 3 Months Insurance [facility] OPEN ACCESS HEALTHLINK OPEN ACCESS Care Teams Timber Incisor Operator Relationship Specialty Start Date End Date Evelyn Ford NP [address] [facility] [address] [place] [address] PCP - General Family Medicine 05/04/24 Lorraine Li NP [address] [facility] [address] [place] [address] Nurse Practitioner Sleep Medicine 05/04/24
--- OUTSIDE RECORDS SUMMARY | 2024-08-04 01:47 | XMS_ITS | Referral Summary ---
Author Organization [facility] [address] Address [address] [place] [address] Care Team Providers Care Teradata Developer Name Role Phone Evelyn Ford NP Primary Care Provider Lorraine Li SENIOR HR BUSINESS PARTNER Unavailable [phone] Encounters Date Type Department Care Team Description 05/04/2024 4:56 PM BUTTON MACHINE OPERATOR - 05/04/2024 11:59 PM BUTTON MACHINE OPERATOR Hospital Encounter [address] [address] Vitamin D deficiency; Encounter for hepatitis C screening test for low risk patient; Encounter for screening examination for intermediate hyperglycemia and diabetes mellitus; Primary hypertension Discharge Disposition: Discharge to home or self care 05/04/[address] [facility] Medical Group Primary Care at [address] [phone] ProviderLynette MD 05/04/2024 8:45 AM BUTTON MACHINE OPERATOR Lab [facility] Medical [facility] Outpatient Lab at [address] [phone] Hyperlipidemia (Primary Dx); Hypertension 05/04/2024 8:00 AM BUTTON MACHINE OPERATOR Office Visit [facility] Medical [facility] Primary Care at [address] [phone] Evelyn Ford NP Primary hypertension (Primary Dx); Mixed hyperlipidemia; Epigastric pain; Chronic insomnia; Encounter for screening examination for intermediate hyperglycemia and diabetes mellitus; Encounter for hepatitis C screening test for low risk patient; Vitamin D deficiency; Anxiety from Last 3 Months Allergies No known active allergies Medications atorvastatin [...] 09/15/2023 Assessment & Plan (05/04/2024 9:12 AM BUTTON MACHINE OPERATOR): Continues follow up with sleep specialist. Encounter [...] his last appointment with me before my fdc so that we can navigate any challenges [...] then. Assessment & Plan (06/10/2020 1:35 PM BUTTON MACHINE OPERATOR): [place] of day shifts looms in near future which will help alleviate the symptoms of this disorder. Assessment & Plan (05/13/2020 3:10 PM BUTTON MACHINE OPERATOR): Continue current plan as noted under Insomnia. [...] use. Assessment & Plan (06/05/2019 4:02 PM BUTTON MACHINE OPERATOR): Given his circumstances, he is sleeping well. [...] needed. Assessment & Plan (09/01/2018 10:17 AM BUTTON MACHINE OPERATOR): He continues to do well with current management strategy. 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 Assessment & Plan (06/10/2020 1:39 PM BUTTON MACHINE OPERATOR): Sleeps well with current regimen of scheduled [...] sleep. Assessment & Plan (05/13/2020 3:10 PM BUTTON MACHINE OPERATOR): Sleeping well and functioning well without side [...] Hypertension Assessment & Plan (05/04/2024 9:13 AM BUTTON MACHINE OPERATOR): BP controlled in office, continues Lisinopril 5 mg. Updated labs ordered. Hyperlipidemia Assessment & Plan (05/04/2024 9:12 AM BUTTON MACHINE OPERATOR): Continues Lipitor, no side effects reported. Updated labs ordered. Anxiety Assessment & Plan (05/04/2024 9:14 AM BUTTON MACHINE OPERATOR): Stable on Lexapro and Buspar. Immunizations Name Administration Dates Next Due Hep A / Hep B 03/13/2005 Influenza, Quadrivalent, Spl it, Preservative Free, Intramuscular 03/21/2020,03/30/2019,03/28/2018,03/27 Influenza, Split 07/07/2012 Influenza, Trivalent, IM (MDV) 03/16/2017,2013 Influenza, Trivalent, Preser vative Free, Intramuscular 04/02/2016,04/25/2015 Influenza, Unspecified 03/28/2023 Td, adsorbed 03/13/2005 Social History Tobacco Use Types Packs/Day Years [...] on file Legal Sex Male 12:27 AM BUTTON MACHINE OPERATOR Gender Identity Not on file Sexual Orientation Not on file Last Filed Vital Signs Vital Sign Reading Time Taken Comments Blood Pressure 94/62 05/04/2024 8:07 AM BUTTON MACHINE OPERATOR Pulse 78 05/04/2024 8:07 AM BUTTON MACHINE OPERATOR Temperature 36.2 C (97.2 F) 05/04/2024 8:07 AM BUTTON MACHINE OPERATOR Respiratory Rate 18 04/17/2024 2:33 PM CDT Oxygen Saturation 96% 05/04/2024 8:07 AM BUTTON MACHINE OPERATOR Inhaled Oxygen Concentration - - Weight 86.2 kg (190 lb) 05/04/2024 8:07 AM BUTTON MACHINE OPERATOR Height 175.3 cm (5' 9 ) 05/04/2024 8:07 AM BUTTON MACHINE OPERATOR Body Mass Index 28.06 05/04/2024 8:07 AM BUTTON MACHINE OPERATOR Plan of Treatment Not on file Medical Devices Implanted Type Area Relay Operator Device Identifier Shelf Expiration Date Model / Serial / Lot [employer] Inspire 3 Electrode Cuff Tunnel Brown Lead Neurostimulator Sterile 4063 - [id number] - [id number] Implanted:Qty: 1 on 07/27/2022 by Peter Yuen MD at [facility] Right: Neck [employer] 07/06/2025 4063 / [id number] / [employer] Inspire Generator 3028 - [id number] - [id number] Implanted:Qty: 1 on 07/27/2022 by Peter Yuen MD at [facility] Right: Neck [employer] 06/15/2025 3028 / [id number] / [employer] Lead Neurostimulator Inspire Respiratory Sens Cycle Strl Lf 4340 - [id number] - [id number] Implanted:Qty: 1 on 07/27/2022 by Peter Yuen MD at [facility] Right: Neck [employer] 07/04/2025 4340 / [id number] / Procedures Procedure Name Priority Date/Time Associated Diagnosis Comments EGFR Routine 05/04/2024 9:00 AM BUTTON MACHINE OPERATOR Primary hypertension DIFFERENTIAL AUTO Routine 05/04/2024 9:0 0 AM BUTTON MACHINE OPERATOR Primary hypertension CBC WITH AUTO DIFFERENTIAL Routine 05/04/2024 9:00 AM BUTTON MACHINE OPERATOR Primary hypertension COMPREHENSIVE METABOLIC PANEL Routine 05/04/2024 9:00 AM BUTTON MACHINE OPERATOR Primary hypertension LIPID PANEL Routine 05/04/2024 9:00 AM BUTTON MACHINE OPERATOR Primary hypertension THYROID FUNCTION CASCADE Routine 05/04/2024 9:00 AM BUTTON MACHINE OPERATOR Primary hypertension HEMOGLOBIN A1C Routine 05/04/2024 9:00 AM BUTTON MACHINE OPERATOR Encounter for screening examination for intermediate hyperglycemia and diabetes mellitus VITAMIN D 25 HYDROXY Routine 05/04/2024 9:00 AM BUTTON MACHINE OPERATOR Vitamin D deficiency HEPATITIS C ANTIBODY Routine 05/04/2024 9:00 AM BUTTON MACHINE OPERATOR Encounter for hepatitis C screening test for low risk patient from Last 3 Months Results * eGFR (05/04/2024 9:00 AM BUTTON MACHINE OPERATOR) eGFR 74 >=60 mL/min/1. 73 m2 Comment: [...] last reviewed 2021. Blood 05/04/2024 9:00 AM BUTTON MACHINE OPERATOR 05/04/2024 5:47 PM BUTTON MACHINE OPERATOR us Evelyn Ford NP LAB BLOOD ORDERABLES Final Resul t KAYLIE [address] [address] [place] [address] * Differential, auto (05/04/2024 9:00 AM BUTTON MACHINE OPERATOR) Neutrophil abs 3.8 1.5 - 6.5 K/cumm Imm gran abs 0.0 0.0 - 0.1 K/cumm [facility] Lymphocyte abs 1.3 0.8 - 3.3 K/cumm [facility] Monocyte abs 0.5 0.2 - 0.8 K/cumm [facility] Eosinophil abs 0.0 0.0 - 0.5 K/cumm [facility] Basophil abs 0.0 0.0 - 0.1 K/cumm [facility] Neutrophil pct 66.6 % CERNER Comment: Interpretive Data Percent cell count reference ranges are not reported, since discordance with absolute values may lead to misinterpretation of CBC data. Current Interpretive Data was last revised on 2017. Imm gran pct 0.4 % CERNER Comment: Interpretive Data Percent cell [...] revised on 2017. Basophil pct 0.5 % CERNER Comment: Interpretive Data Percent cell count reference ranges are not reported, since discordance with absolute values may lead to misinterpretation of CBC data. Current Interpretive Data was last revised on 2017. Blood 05/04/2024 9:00 AM BUTTON MACHINE OPERATOR 05/04/2024 5:38 PM BUTTON MACHINE OPERATOR us Evelyn Ford SENIOR HR BUSINESS PARTNER LAB BLOOD ORDERABLES Final Resul t Performing Organization Address City/[facility] Co de Phone Number KAYLIE LEONARD [address] [facility] [place] [address] * Thyroid Function [place] (05/04/2024 9:00 AM BUTTON MACHINE OPERATOR) TSH 1.30 0.30 - 4.20 mcIUnit/mL Blood 05/04/2024 9:00 AM BUTTON MACHINE OPERATOR 05/04/2024 5:38 PM BUTTON MACHINE OPERATOR us Evelyn Ford SENIOR HR BUSINESS PARTNER LAB BLOOD ORDERABLES Final Resul t Performing Organization Address [facility] de Phone Number KAYLIE LEONARD [address] [facility] [place] [address] * (ABNORMAL) CBC with auto differential (05/04/2024 9:00 AM BUTTON MACHINE OPERATOR) Pathologist [facility] WBC 5.7 3.8 - 9.9 K/cumm Hgb 14.4 13.0 - 17.5 g/dL [facility] CH Hct 47.4 38.9 - 50.3 % [facility] CH Plt 293 150 - 400 K/cumm [facility] CH MPV 10.5 9.1 - 12.3 fL [facility] RBC 5.19 4.30 - 5.80 M/cumm [facility] CH MCV 91.3 81.3 - 96.[address] [facility] CH MCH 27.7 27.1 - 33.3 pg [facility] MCHC 30.4(L) 32.3 - 35.7 g/dL CERNER CH RDW CV 12.0 11.1 - 14.9 % CERNER CH RDW SD 40.4 35.7 - 48.1 fL C[facility]ER CH NRBC abs 0.00 0.00 - 0.01 K/cumm [facility] CH Blood 05/04/2024 9:00 AM BUTTON MACHINE OPERATOR 05/04/2024 5:38 PM BUTTON MACHINE OPERATOR us Evelyn Ford SENIOR HR BUSINESS PARTNER LAB BLOOD ORDERABLES Final Resul t Performing Organization Address City/[facility] Co de Phone Number KAYLIE LEONARD [address] [facility] [place] [address] * Hepatitis C antibody Blood (05/04/2024 9:00 AM BUTTON MACHINE OPERATOR) [facility] Hep C Ab Nonreactive Nonreactive Comment: Interpretive [...] revised on 2019. Blood 05/04/2024 9:00 AM BUTTON MACHINE OPERATOR 05/04/2024 5:38 PM BUTTON MACHINE OPERATOR us Evelyn Ford NP LAB MICROBIOLOGY - GENERAL ORDER VERONIKA Final Result Performing Organization Address [facility] de Phone Number KAYLIE [address] [address] [facility] [place] [address] * Vitamin D 25 hydroxy (05/04/2024 9:00 AM BUTTON MACHINE OPERATOR) [facility] Vitamin D 25-OH 44 30 - 80 ng/mL Blood 05/04/2024 9:00 AM BUTTON MACHINE OPERATOR 05/04/2024 5:38 PM BUTTON MACHINE OPERATOR us Evelyn Ford NP LAB BLOOD ORDERABLES Final Resul t Performing Organization Address [facility] de Phone Number AKILABRIANA [address] [address] [facility] [place] [address] * (ABNORMAL) Hemoglobin A1c (05/04/2024 9:00 AM BUTTON MACHINE OPERATOR) [facility] Hgb A1C 5.7(H) 4.0 - 5.6 % Estimated Average Glucose 117 mg/dL KALYIE LEONARD Comment: The ADA recommends reporting an estimated Average Glucose (eAG) with all Hemoglobin A1c results using the equation derived from a study of 507 normal and diabetic adults. Minority populations were underrepresented and children were not included. (Diabetes Care 31:8114-0566, 2008). The eAG is not equivalent to a fasting glucose. Blood 05/04/2024 9:00 AM BUTTON MACHINE OPERATOR 05/04/2024 5:38 PM BUTTON MACHINE OPERATOR us Evelyn Ford NP LAB BLOOD ORDERABLES Final Resul t KAYLIE LEONARD [address] Department [place] [address] * Lipid panel (05/04/2024 9:00 AM BUTTON MACHINE OPERATOR) Cholesterol 161 30 - 199 mg/dL Comment: [...] on 2018. Triglycerides 73 <=149 mg/dL KAYLIE LEONARD Comment: Interpretive Data Ages < or = [...] on 2018. HDL 62 >=40 mg/dL KAYLIE LEONARD Comment: Interpretive Data Ages < or = [...] 2018. LDL, calculated 85 <=129 mg/dL KAYLIE LEONARD Comment: Interpretive Data Ages < or = 19 years Acceptable: <110 mg/dL Borderline high: 110-129 mg/dL High: >or= 130 mg/dL Ages > or = 20 years Optimal: <100 mg/dL Near optimal: 100-129 mg/dL Borderline high: 130-159 mg/dL High: >160 mg/dL Calculated using the Sal LDL-C estimating equation. This equation was implemented on 2024. Prior to this date LDL-C was estimated using the Friedewald equation. Literature References: 1. Expert Panel on Integrated Guidelines for Cardiovascular Health and Risk Reduction in Children and Adolescents. Pediatrics 2011;128:S213 2. NCEP Expert Panel. Circulation 2004;110:227 3. Sal Flores al. TANJA Cardiol. 2019October 26;5(5):540-548. doi: 10.1001/jamacardio.2020.0013 Current Interpretive Data was last revised on 2024. Non-HDL Cholesterol 99 mg/dL KAYLIE LEONARD Comment: Interpretive Data Ages < or = [...] last revised on 2018. Chol/HDL ratio 3 KAYLIE LEONARD Blood 05/04/2024 9:00 AM BUTTON MACHINE OPERATOR 05/04/2024 5:38 PM BUTTON MACHINE OPERATOR Evelyn Ford NP LAB BLOOD ORDERABLES Final Resul t KAYLIE LEONARD [address] Department of Laboratories [place], [place] [id number] * Comprehensive metabolic panel (05/04/2024 9:00 AM BUTTON MACHINE OPERATOR) Sodium 139 135 - 145 mmol/L Potassium, pl 4.2 3.3 - 4.9 mmol/L [facility] CH Chloride 102 97 - 110 mmol/L [facility] CH CO2 27 22 - 32 mmol/L [facility] CH Anion gap 10 2 - 15 mmol/L [facility] CH BUN 20 6 - 25 mg/dL [facility] CH Creatinine 1.21 0.80 - 1.30 mg/dL [facility] CH Glucose 88 70 - 199 mg/dL [facility] CH Comment: Interpretive Data Fasting glucose >/= 126 [...] Units/L [facility] CH Blood 05/04/2024 9:00 AM BUTTON MACHINE OPERATOR 05/04/2024 5:38 PM BUTTON MACHINE OPERATOR Evelyn Ford NP LAB BLOOD ORDERABLES Final Resul t Performing Organization Address [facility] Co de Phone Number KAYLIE LEONARD [address] [place] [address] from Last 3 Months Insurance [employer] OPEN ACCESS [employer] OPEN ACCESS Care Teams Teradata Developer Relationship Specialty Start Date End Date Evelyn Ford NP [address] [place] [address] PCP - General Family Medicine 05/04/24 Lorraine Li NP [address] [facility] [address] [place] [address] Nurse Practitioner Sleep Medicine 05/04/24
--- OUTSIDE RECORDS SUMMARY | 2024-08-04 01:48 | XMS_ITS | Clinical Summary ---
Author Organization [facility] Address [address] [place] [phone] Phone Care Team Providers Care Mortgage Clerk Name Role Phone Unavailable Primary Care Provider Unavailabl e Medications zolpidem (Ambien) 10 mg tablet Take 1-2 tablets by mouth at night as needed for sleep 60 Tablet 12/11/2023 4:59 PM CDT 12/10/2023 Active zolpidem (Ambien) 10 mg tablet Take 1-2 Tablets (10-20 mg) by mouth nightly as needed with drug holiday. 30 Tablet 12/23/2023 9:09 AM CDT 12/21/2023 Active zolpidem (Ambien) 10 mg tablet 1-2 po qhs prn sleep 60 Tablet 01/03/2024 Active Social History Tobacco Use Types Packs/Day Years Used Date Smoking Tobacco: Never Assessed Sex and Gender Information Value Date Recorded Sex Assigned at Not on file Legal Sex Male 11:51 PM CDT Gender Identity Not on file Sexual Orientation Not on file Plan of Treatment Health Maintenance Due Date Last Done Comments Pre-Diabetes and Diabetes Screening 1975 DTAP/TDAP/TD VACCINES (1 - Tdap) 10/14/1994 HEPATITIS B VACCINES (1 of 3 - + 3-dose series) 10/14/1994 COLORECTAL SCREENING 10/14/2020 Colorectal Cancer Screening 10/14/2020 FIT-DNA Q 3 years 10/14/2020 FIT/FOBT Q 1 year 10/14/2020 Flex Sig/CT Colonography Q 5 years 10/14/2020 INFLUENZA VACCINE (#1) 2024 04/05/2023 COVID-19 Vaccine (3 - 2023-2 5 season) 2024 08/22/2020, 07/26/2020 PNEUMOCOCCAL VACCINE 0-64 YEARS Aged Out No longer eligible b ased on patient's age to complete this topic Insurance [employer] (INTERNAL) [facility] [employer] OA
--- OUTSIDE RECORDS SUMMARY | 2024-08-04 01:48 | XMS_ITS ---
Author Organization [facility] Address [address] [place] [address] Care Team Providers Care Retail Asset Protection Specialist Name Role Phone STEF SHAFER Unavailable [phone] REASON FOR VISIT LS TO [facility]+ Sleep Evaluation, CXL VISIT. PT WAS ABLE TO GET INTO PCP FOR A VISIT/REFILL Medications Medication SIG (Take, Route, Frequency, Duration) Notes Start Date End Date Status Ambien Active Encounters Encounter Location Date Provider Diagnosis [facility] [address] [facility] [place] [address] 07/01/2023 STEF SHAFER Assessments Encounter Date Diagnosis (ICD Code) Assessment Notes Treatment Notes Treatment Clinical Notes Section Notes 07/01/2023 Other Follow the treatment plan as indicated by the provider. Take any medications as prescribed. If you have any questions about your prescription, ask the pharmacist or call our office. If your condition worsens, return to one of our local offices ([facility]), or go to the ER. Failure to seek timely care can result in , or disability. Risks, benefits, and side effects of medications (if any) discussed with patient. Patient agrees with treatment plan. The patient's condition was stable at the end of this televisit. Plan Of Treatment Treatment Notes Assessment Notes Other Follow the treatment plan as indicated by the provider. Take any medications as prescribed. If you have any questions about your prescription, ask the pharmacist or call our office. If your condition worsens, return to one of our local offices ([facility]), or go to the ER. Failure to seek timely care can result in , or disability. Next Appt Details Follow Up: PCP, Reason: Progress Notes * Casey ANDUJARDOB:1975 (48 yo M)Acc No.[id number]:07/01/2023 Patient: Casey LEI Provider: Claude SHAFER APRN :1975 A ge:47 Y S ex:Male Date:07/01/2023 Phone: Address:[address], [id number] Subjective: * Chief Complaints: * 1 . LS TO ASYNC+ Sleep Evaluation. 2. CXL VISIT. PT WAS ABLE TO GET INTO PCP FOR A VISIT/REFILL. * HPI: T eleVisit Consent: Patient's identification was confirmed and they were instructed that this visit is based on visual, audio information in addition to previous medical notes and diagnostics. As well it relies on the patient for information related to their physical well being, diagnosis and treatment. The patient acknowledges that they are not being recorded today, and they do not have permission to record this visit either. Patient verbalized understanding to all of the above. C onstitutional: Denies n ight sweats, unexplained weight loss, fevers, dizziness, chest pain, lymph node swelling, snoring, depression, or insomnia. * ROS: A ll Other Systems: Review of Systems (ROS) S ee HPI for details. * Medical History: * Medications: T aking Ambien Objective: * Vitals: * Examination: G eneral Examination: GENERAL APPEARANCE: i n no acute distress. EARS: h earing grossly intact. NEUROLOGIC: a lert and oriented , speech clear. PSYCH: m ood/affect normal, understands directions. ? Assessment: Plan: * Treatment: * Follow Up: P CP * Billing Information: * Visit Code: * Procedure Codes: Images * CW - -- - --CForm - 07-01 * Electronic signature of RAMIRO SHAFER APRN on 08/04/2024 at 02:48 AM EST Sign off status: Pending * Provider: Claude SHAFER APRN Date: 0 07/01/2023 Generated for Nic naylor/Quinn/Nick on: 0 08/04/2024 02:48 AM EST History and Physical Notes * HPI (History of Present Illness) Category Sub-Category Detail Notes Category Not es Constitutional Denies night sweats, un explained weight loss, fevers, dizziness, chest pain, lymph node swelling, snoring, depression, or insomnia Examination Category Sub-Category Detail Notes Category Not es General Examination GENERAL APPEARANCE: in no acute di stress EARS: hearing grossly inta ct NEUROLOGIC: alert and oriented , speech clear PSYCH: mood/affect normal, understands directions
--- OUTSIDE RECORDS SUMMARY | 2024-08-04 01:48 | XMS_ITS | Patient Health Record ---
Author Organization [facility] Address [address] [place] [address] Support Name Relationship Address Phone Casey Andujar Guarantor Unknown Unavailable Allergies No Known Allergies Reason For Referral No Information Medications Medication SIG (Take, Route, Frequency, Duration) Notes Start Date End Date Status Ambien Active Social History Tobacco Use: Social History Observation Description Date Details (start date - stop date) Never Smoker NA - NA Tobacco Use/Smoking Question Answer Notes Are you a nonsmoker Plan Of Treatment No Information Insurance Providers Payer Name Payer Address Payer Phone Subscriber Number Group Number Insured Name Patient Relationship to Insured Coverage Start Date Coverage End Date [facility] Self Pay [address] [place] [phone] Casey Andujar Self - patient is the insured Medical (General) History Medical History History ICD Code insomnia
--- OUTSIDE RECORDS SUMMARY | 2024-08-04 01:48 | XMS_ITS ---
Author Organization [facility] Address [address] [place] [address] Care Team Providers Care Digital Analytics Manager Name Role Phone CIRA PURI Unavailable Allergies No Known Allergies REASON FOR VISIT NR TO NS [facility] Medications Medication SIG (Take, Route, Frequency, Duration) Notes Start Date End Date Status Ambien Active Social History Tobacco Use: Social History Observation Description Date Details (start date - stop date) Never Smoker NA - NA Tobacco Use/Smoking Question Answer Notes Are you a nonsmoker Vital Signs Height 69 in 06/08/2023 Weight 185 lbs 06/08/2023 BMI 27.32 kg/m2 06/08/2023 Patient Reported Normal Bloo d PresurePatient Reported Normal Temperature Encounters Encounter Location Date Provider Diagnosis [facility] [address] [place] [address] 06/08/2023 CIRADIANE PURI Assessments Encounter Date Diagnosis (ICD Code) Assessment Notes Treatment Notes Treatment Clinical Notes Section Notes 06/08/2023 AI TRIAGE SUGGESTED ASSESSMENTS: G47.9 - Sleep disorder, unspecified F32.A - Depression, unspecified E07.9 - Disorder of thyroid, unspecified R53.82 - Chronic fatigue, unspecified --- ---AI TRIAGE CLINICAL REASONING: Based on the patient's symptoms and medical history, the following differential diagnoses can be considered: 1. Sleep apnea: The patient's tiredness could be due to sleep apnea, which is characterized by interrupted breathing during sleep and can lead to daytime fatigue. 2. Anemia: Fatigue is a common symptom of anemia, which is a condition characterized by a decrease in the number of red blood cells or hemoglobin in the blood. 3. Depression: The patient's tiredness could be a manifestation of depression, a mood disorder that can cause persistent feelings of sadness and fatigue. 4. Thyroid disorder: An underactive thyroid (hypothyroidism) can cause fatigue and tiredness. 5. Chronic fatigue syndrome: This condition is characterized by severe fatigue that is not improved by rest and is not directly caused by other medical conditions. 6. Medication side effect: The patient's tiredness could be a side effect of the Ambien medication he is currently taking. 7. Vitamin deficiency: Certain vitamin deficiencies, such as vitamin B12 deficiency, can cause fatigue. 8. Infection: Fatigue can be a symptom of various infections, although the patient denies any other symptoms suggestive of an infection. Further evaluation and diagnostic tests may be necessary to determine the underlying cause of the patient's tiredness. Plan Of Treatment No Information Progress Notes * Casey ANDUJARDOB:1975 (48 yo M)Acc No.[id number]:06/08/2023 Patient: Casey LEI Provider: Victor M PURI APRN :1975 A ge:47 Y S ex:Male Date:06/08/2023 Phone: Address:[address] [facility] [address] [place] [facility] Subjective: * Chief Complaints: * 1 . NR TO [facility]. * HPI: T [facility] Complaint History: 47 year-old male, presents with moderate tiredness for a duration of 1 days. 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 Symptoms x 1 day. . * ROS: T he patient denies the following: shortness of breath, confusion, weakness of one side of body, fainting or passing out, slurred speech, palpitations, black, tarry stool, fever, pallor, sore throat, stuffed-up nose, cough, localized warm skin, swelling of lower limb, rash, chest pain, abdominal pain, dry mouth, vomiting, dark urine, decreased urination, headache, itching, eye pain, pelvic pain, seizure, increased thirst, blood in stool and nasal discharge. * Medical History: I nsomnia. * Surgical History: D enies Past Surgical History. * Hospitalization/Major Diagno stic Procedure: D enies Past Hospitalization. * Family History: denies. * Social History: T obacco Use: T obacco Use/Smoking A re you a n onsmoker D rugs/Alcohol: D o you drink alcohol?: No. * Medications: Josefina Villegas , Medication List reviewed and reconciled with the patient * Allergies: N .K.D.A. Objective: * Vitals: H t: 69 in, Wt:185lbs, BMI:27.32Index. Patient Reported Normal Blood Presure Patient Reported Normal Temperature. Assessment: * Assessment: AI TRIAGE SUGGESTED ASSESSME NTS: G47.9 - Sleep disorder, unspecified F32.A - Depression, unspecified E07.9 - Disorder of thyroid, unspecified R53.82 - Chronic fatigue, unspecified --- ---AI TRIAGE CLINICAL REASONING: Based on the patient's symptoms and medical history, the following differential diagnoses can be considered: 1. Sleep apnea: The patient's tiredness could be due to sleep apnea, which is characterized by interrupted breathing during sleep and can lead to daytime fatigue. 2. Anemia: Fatigue is a common symptom of anemia, which is a condition characterized by a decrease in the number of red blood cells or hemoglobin in the blood. 3. Depression: The patient's tiredness could be a manifestation of depression, a mood disorder that can cause persistent feelings of sadness and fatigue. 4. Thyroid disorder: An underactive thyroid (hypothyroidism) can cause fatigue and tiredness. 5. Chronic fatigue syndrome: This condition is characterized by severe fatigue that is not improved by rest and is not directly caused by other medical conditions. 6. Medication side effect: The patient's tiredness could be a side effect of the Ambien medication he is currently taking. 7. Vitamin deficiency: Certain vitamin deficiencies, such as vitamin B12 deficiency, can cause fatigue. 8. Infection: Fatigue can be a symptom of various infections, although the patient denies any other symptoms suggestive of an infection. Further evaluation and diagnostic tests may be necessary to determine the underlying cause of the patient's tiredness. Plan: * Treatment: * Billing Information: * Visit Code: * Procedure Codes: Images * 06-08-2023 Consent Form * Electronic signature of ROBYN PURI APRN on 08/04/2024 at 02:47 AM EST Sign off status: Pending * Provider: Victor M PURI APRN Date: 1 08/09/2022 Generated for Nic naylor/Quinn/Nick on: 0 08/04/2024 02:47 AM EST History and Physical Notes * HPI (History of Present Illness) Category Sub-Category Detail Notes Category Not es TeleVisit Consent TEST RACK OPERATOR Triage Additional i nformation needed to determine appropriate diagnosis Is patient inquiring about refill. Symptoms x 1 day. [facility] Complaint History 47 year-old male, presents with moderate tiredness for a duration of 1 days.
--- OUTSIDE RECORDS SUMMARY | 2024-08-04 01:48 | XMS_ITS | Clinical Summary ---
Author Organization [facility] Address [address] [place] [address] Care Team Providers Care Mechanical Laboratory Technician Name Role Phone Ady Villalobos MD Primary Care Provider [phone] Immunizations Name Administration Dates Next Due MODERNA COVID-19 (12+) MRNA, LNP-S, PF, 100 MCG/ 0.5 ML DOSE 08/22/2020,07/26/2020 Social History Tobacco Use Types Packs/Day Years Used Date Smoking Tobacco: Never Assessed Sex and Gender Information Value Date Recorded Sex Assigned at Not on file Legal Sex Male 8:23 PM CDT Gender Identity Not on file Sexual Orientation Not on file Plan of Treatment Health Maintenance Due Date Last Done Comments Colorectal Cancer Screening Colonoscopy (10 Years) 1975 Annual Physical 10/14/1978 Hepatitis C 10/14/1993 DTaP, Tdap and Td Vaccines ( 1 - Tdap) 10/14/1994 Hepatitis B Vaccines (1 of 3 - 19+ 3-dose series) 10/14/1994 COVID-19 Vaccine (3 - 2023-2 5 season) 2024 08/22/2020, 07/26/2020 Influenza Adult (#1) 2024 04/05/2023 Meningococcal B Vaccine Aged Out No l onger eligible based on patient's age to complete this topic Meningococcal Vaccine Aged Out No erin ashwini eligible based on patient's age to complete this topic Pneumococcal Vaccine: Pediatrics (0 to 5 Years) and At-Risk Patients (6 to 64 Years) Aged Out No longer eligible b ased on patient's age to complete this topic RSV Immunizations Under 20 Months Aged Out No longer eligible b ased on patient's age to complete this topic Care Teams Mechanical Laboratory Technician Relationship Specialty Start Date End Date Ady Villalobos MD [address] [place], [place] [id number] PCP - General FAMILY PRACTICE 11/16/23
[2024-08-04 11:10] VITALS: BP 104/77; PULSE 84; RESP 16; TEMP 36.3; O2SAT 100
[2024-08-04] MEDS: LACTATED RINGERS 1,000 ML 150 ML IV CONT (11:19)
--- NOTE | 2024-08-04 11:30 | P.PNAN_ITS ---
Anes - Initial Pre Proc Eval Procedure: Operation Date: 08/04/24 11:30 Proposed Procedures p Colonoscopy - Ramiro Hoffman MD Date/Time: 08/04/24 11:30 Surgeon: Ramiro Hoffman MD Pre Op Diagnosis: Right lower quadrant pain Patient Data Age: 48 Gender: M Height: 1.75 m Weight: 82.8 kg Last Vital Signs Temp 36.3 C L 08/04/24 11:10 Pulse 84 08/04/24 11:10 Resp 16 08/04/24 11:10 BP 104/77 08/04/24 11:10 Pulse Ox 100 08/04/24 11:10 O2 Del Method Room Air 08/04/24 11:10 Allergies Allergy/AdvReac Type Severity Reaction Status Date / Time No Known Allergies Allergy Verified 08/04/24 11:08 Home Medications ?Medication ?Instructions ?Recorded ?Confirmed ?Type zolpidem 12.5 mg tablet,extended 12.5 mg PO QHS #30 tabs 02/15/24 08/04/24 Rx release,multiphase buspirone 15 mg tablet See Rx Instructions .Route 04/11/24 08/04/24 Rx .COMPLEX #60 tabs lisinopril 5 mg tablet 5 mg PO DAILY #90 tabs 06/18/24 08/04/24 Rx escitalopram oxalate 20 mg tablet See Rx Instructions .Route 06/21/24 08/04/24 Rx .COMPLEX #90 tabs atorvastatin 10 mg tablet 10 mg PO DAILY #90 tabs 06/28/24 08/04/24 Rx Patient hx anesthesia problems: none Family hx anesthesia problems: none Results Review: All pre-operative results and documents have been reviewed as part of the pre- operative evaluation. [facility] Past Medical History Medical History Right ureteral stone Right rotator cuff tear Screen for colon cancer BPH loc w urin obs/LUTS Screening for malignant neoplasm of prostate declined Medial epicondylitis, right elbow Right shoulder pain History of headache Gallbladder disorder Tendinopathy Nephrolithiasis Mass of left side of neck Dysphagia Insomnia Anxiety Essential hypertension Liver disease Mixed hyperlipidemia Seasonal allergic rhinitis Stress Tremors of nervous system Surgical History Surgical History Cubital tunnel syndrome on right Right ulnar nerve decompression February 10, 2022 History of lithotripsy History of knee surgery Left due to meniscus tear 2009 and 2010 History of shoulder surgery Left x2 due to rotator cuff Family History Family History Father Family history of pancreatic cancer Smoker in home Mother Hypertension Social History Social History Smoking status: Never smoker Second hand tobacco smoke exposure: No Alcohol intake: current Drinks per week: 5 Alcohol use details: socially Substance use: never Substance use type: does not use Do You Feel Safe in your Home?: Yes Lack of Transportation: No Lack of Food: Never True Current Housing: I Have Housing Concerned About Future Housing: No Difficulty Paying Gas/Electric Bills: No Difficulty Paying for Meds: No Currently Unemployed: YES Education: Bachelor's Degree Difficulty w/ Childcare or Family Care: No Living arrangements: with family Additional living arrangements comments: Occupation/Education: occupation 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 Gender identity (if verbalized by the patient): Male Sexual Orientation (if Verbalized by the Patient): Straight or Heterosexual Spiritual care concerns: No Agree to blood products: Yes Anes - Eval Final PreProcedure Day of Procedure 08/04/24 11:30 Patient weight: overweight Heart: regular rate and rhythm Lungs: clear to auscultation Airway: Mallampati scale class II Neurological: alert and oriented Last oral intake: >/= 8 hours ASA classification: III Emergent: no Anesthetic plan: proceed Anesthesia type and monitoring: general GIVS and standard monitoring Results Review: All pre-operative results and documents have been reviewed as part of the pre- operative evaluation. Informed Consent: The patient's anesthetic plan and its attendant risks and benefits were discussed with the patient/family/POA. Questions were solicited and answers provided to the satisfaction of the patient/family/POA.
--- NOTE | 2024-08-04 11:52 | P.HP_ITS ---
H&P: HPI History of Present Illness Date/Time: 08/04/24 11:52 Chief Complaint: Screening colonoscopy Narrative: This is the patient's first colonoscopy. There are no GI symptoms and there is no family history of colorectal cancer. Review of Systems Review of Systems: All systems reviewed & are unremarkable except as noted in HPI and below [facility] Past Medical History Medical History (Updated 08/04/24 @ 11:53 by Ramiro Hoffman MD) Screen for colon cancer Right ureteral stone Right rotator cuff tear BPH loc w urin obs/LUTS Screening for malignant neoplasm of prostate declined Medial epicondylitis, right elbow Right shoulder pain History of headache Gallbladder disorder Tendinopathy Nephrolithiasis Mass of left side of neck Dysphagia Insomnia Anxiety Essential hypertension Liver disease Mixed hyperlipidemia Seasonal allergic rhinitis Stress Tremors of nervous system Surgical History Surgical History Cubital tunnel syndrome on right Right ulnar nerve decompression February 10, 2022 History of lithotripsy History of knee surgery Left due to meniscus tear 2009 and 2010 History of shoulder surgery Left x2 due to rotator cuff Family History Family History Father Family history of pancreatic cancer Smoker in home Mother Hypertension Social History Social History Smoking status: Never smoker Second hand tobacco smoke exposure: No Alcohol intake: current Drinks per week: 5 Alcohol use details: socially Substance use: never Substance use type: does not use Do You Feel Safe in your Home?: Yes Lack of Transportation: No Lack of Food: Never True Current Housing: I Have Housing Concerned About Future Housing: No Difficulty Paying Gas/Electric Bills: No Difficulty Paying for Meds: No Currently Unemployed: YES Education: Bachelor's Degree Difficulty w/ Childcare or Family Care: No Living arrangements: with family Additional living arrangements comments: Occupation/Education: occupation 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 Gender identity (if verbalized by the patient): Male Sexual Orientation (if Verbalized by the Patient): Straight or Heterosexual Spiritual care concerns: No Agree to blood products: Yes Meds Home Medications and Allergies Home Medications ?Medication ?Instructions ?Recorded ?Confirmed ?Type zolpidem 12.5 mg tablet,extended 12.5 mg PO QHS #30 tabs 02/15/24 08/04/24 Rx release,multiphase buspirone 15 mg tablet See Rx Instructions .Route 04/11/24 08/04/24 Rx .COMPLEX #60 tabs lisinopril 5 mg tablet 5 mg PO DAILY #90 tabs 06/18/24 08/04/24 Rx escitalopram oxalate 20 mg tablet See Rx Instructions .Route 06/21/24 08/04/24 Rx .COMPLEX #90 tabs atorvastatin 10 mg tablet 10 mg PO DAILY #90 tabs 06/28/24 08/04/24 Rx Allergies Allergy/AdvReac Type Severity Reaction Status Date / Time No Known Allergies Allergy Verified 08/04/24 11:08 Vital Signs Vital Signs - 24 hr 08/04/24 11:10 Temperature 97.4 F L Pulse Rate 84 Respiratory Rate 16 Blood Pressure 104/77 Pulse Oximetry 100 Oxygen Delivery Room Air Exam Const: General: cooperative and healthy appearing Resp: Effort & Inspection: normal respiratory effort and able to speak in complete sentences Auscultation: clear to auscultation bilaterally Cardio: Rate: regular rate Rhythm: regular rhythm GI: Inspection: normal to inspection GI Palp: No No hepatosplenomegaly present Auscultation: normal bowel sounds Rectal Exam: deferred Skin: General skin exam: normal color Psych: Appearance: grossly normal Mental Status: mental status grossly normal Assessment and Plan Assessment and plan (1) Screen for colon cancer: Code(s): Z12.11 - Encounter for screening for malignant neoplasm of colon Status: Acute Assessment and Plan: The patient is deemed a good candidate for the procedure. Consent signed. Will proceed.
[2024-08-04 12:29] VITALS: BP 99/67; PULSE 70; RESP 17; O2SAT 100
[2024-08-04 12:39] VITALS: BP 104/74; PULSE 70; RESP 17; O2SAT 100
[2024-08-04 12:49] VITALS: BP 103/74; PULSE 65; RESP 18; O2SAT 100
== END 2024-08-04 13:09 | disposition home or self-care (01) ==
PROVIDERS: PCP Nurse Practitioner Family; Referring Provider Nurse Practitioner Family; Visit Provider Internal Medicine Gastroenterology
PROC: 0DJD8ZZ Inspection of Lower Intestinal Tract, Via Natural or Artificial Opening Endoscopic (ICD-10-PCS; CPT 45378; principal; 2024-08-04 11:30)
DX: Z12.11 Encounter for screening for malignant neoplasm of colon (principal); D12.5 Benign neoplasm of sigmoid colon; K64.8 Other hemorrhoids; I10 Essential (primary) hypertension; E78.2 Mixed hyperlipidemia; G47.00 Insomnia, unspecified; F41.9 Anxiety disorder, unspecified; G25.2 Other specified forms of tremor; N40.1 Benign prostatic hyperplasia with lower urinary tract symptoms; K82.9 Disease of gallbladder, unspecified; K76.9 Liver disease, unspecified; Z98.890 Other specified postprocedural states; Z87.442 Personal history of urinary calculi; Z80.0 Family history of malignant neoplasm of digestive organs
CPT/HCPCS: 45385; 88305; J2003; J2704; J7120

== ENCOUNTER 2025-05-28 13:39 | Outpatient (CLI) | payer OTHER, SELFPAY ==
--- NOTE | ~2025-05-28 | XR_ITS ---
EXAMINATION: XR hip RT min 2V, 05/28/2025 13:46 MILL REPRESENTATIVE HISTORY: M25.559 - Pain in unspecified hip COMPARISON: No comparisons available. Findings: No acute fracture or malalignment. No significant degenerative changes. Soft tissues unremarkable. Impression: No acute fracture or malalignment. Reviewed, dictated and finalized at location P. REPRESENTATIVE Impression: No acute fracture or malalignment.
== END 2025-05-28 13:40 | disposition home or self-care (01) ==
LOC: MICIMG 13:41
PROVIDERS: PCP Family Medicine; Visit Provider Nurse Practitioner Family
DX: M25.551 Pain in right hip (principal)
CPT/HCPCS: 73502